=== PATIENT | female | born 1995 ===

== ENCOUNTER 2018-02-05 13:39 | Inpatient (IN) | payer MEDICAID ==
--- NOTE | 2018-02-05 14:21 | ED PDOC ---
HPI:Nausea, Vomiting, Diarrhea Chief Complaint (Provider): N/V, decreased appetite History Per: Patient History/Exam Limitations: no limitations Onset/Duration Of Symptoms: Days (3) Current Symptoms Are (Timing): Still Present Additional Complaint(s): 22 yo LMP 01/14/18 presents with N/V and decreased appetite. Pt denies fever/ chills. PT states she has some intermittent epigastric pain, usually after vomiting. No current pain. Pt did not take anything at home. Pt states she took a test at home that was negative. No vaginal bleeding, no vaginal discharge. No dysuria. Normal BM <Kiersten Lou - Last Filed: 02/05/18 20:04> <Kurt Beaulieu - Last Filed: 02/05/18 20:39> Time Seen by Provider: 02/05/18 13:53 Chief Complaint (Nursing): Abdominal Pain Past Medical History Reviewed: Historical Data, Nursing Documentation, Vital Signs Vital Signs: Last Vital Signs Temp 98.0 F 02/05/18 13:53 Pulse 96 H 02/05/18 13:53 Resp 19 02/05/18 13:53 BP 119/73 02/05/18 13:53 Pulse Ox 100 02/05/18 13:53 - Medical History PMH: No Chronic Diseases - Surgical History Surgical History: No Surg Hx - Family History Family History: States: No Known Family Hx - Living Arrangements Living Arrangements: With Family - Social History Current smoker - smoking cessation education provided: No <Kiersten Lou - Last Filed: 02/05/18 20:04> Vital Signs: Last Vital Signs Temp 98.0 F 02/05/18 13:53 Pulse 96 H 02/05/18 13:53 Resp 19 02/05/18 13:53 BP 119/73 02/05/18 13:53 Pulse Ox 100 02/05/18 20:08 <Kurt Beaulieu - Last Filed: 02/05/18 20:39> - Allergies Allergies/Adverse Reactions: Allergies Allergy/AdvReac Type Severity Reaction Status Date / Time No Known Allergies Allergy Verified 07/27/14 03:09 Review of Systems ROS Statement: Except As Marked, All Systems Reviewed And Found Negative Constitutional: Negative for: Fever Gastrointestinal: Positive for: Abdominal Pain (Mild epigastric ). Negative for : Nausea, Vomiting Genitourinary Female: Negative for: Dysuria, Vaginal Discharge, Vaginal Bleeding , Pelvic Pain <Kiersten Lou - Last Filed: 02/05/18 20:04> Physical Exam - Reviewed Nursing Documentation Reviewed: Yes Vital Signs Reviewed: Yes - Physical Exam Appears: Positive for: Well, Non-toxic, No Acute Distress Head Exam: Positive for: ATRAUMATIC, NORMAL INSPECTION, NORMOCEPHALIC Skin: Positive for: Normal Color, Warm, DRY Eye Exam: Positive for: Normal appearance ENT: Positive for: Normal ENT Inspection Neck: Positive for: Normal, Painless ROM Cardiovascular/Chest: Positive for: Regular Rate, Rhythm Respiratory: Positive for: Normal Breath Sounds. Negative for: Accessory Muscle Use, Respiratory Distress Gastrointestinal/Abdominal: Positive for: Normal Exam, Bowel Sounds, Soft. Negative for: Tenderness Back: Positive for: Normal Inspection Extremity: Positive for: Normal ROM Neurologic/Psych: Positive for: Alert, Oriented <Kiersten Lou - Last Filed: 02/05/18 20:04> - Laboratory Results Result Diagrams: 02/05/18 15:10 02/05/18 15:10 - ECG O2 Sat by Pulse Oximetry: 100 <Kiersten Lou - Last Filed: 02/05/18 20:04> - Laboratory Results Result Diagrams: 02/05/18 15:10 02/05/18 15:10 <Kurt Beaulieu - Last Filed: 02/05/18 20:39> Medical Decision Making Medical Decision Making: Urine (-) Abnormal U.Dip sent to labs for U/S and US of the abdomen ordered. LFT elevated. PT seen and examined by Dr. Cottrell. Pt admits to taking 10-15 tabs of Tylenol 2 days ago (02/03/18) because she was feeling depressed. PT states that she thinks they were regular strength but is not sure. PT reports taking the last tylenol late in the evening of 02/03/18. PT/PTT/INR ordered. Discussed case with Dr. Daniel. Dr. Daniel would like tylenol level and for poison control to be called. DESMOND Sheehan from poison control. 21 hour course of acetylcysteine at hours 1 - 4 - 16 Repeat LFT, PT/PTT/INR when 2 hours are left. She may need a second 16 hour of acetylcysteine. Continue until LFT < 1000. Mikey Criteria - Candidate for liver transplant. Pt does not meet criteria at this time. 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 Discussed with Dr. Daniel recommended of poison Control. Admission discussed with Dr. Mancera. <Kiersten Lou - Last Filed: 02/05/18 20:04> Medical Decision Making: Time: 190 --Patient additionally evaluated by provider and resident. Care taken over from Dr. Cottrell. --Patient had overdosed on Tylenol with elevated ALT/ALS count. --Kiersten SUAZO spoke to Dr. Daniel, GI specialist. Advised patient be admitted to ICU and asked poison control to be called. --Poison control was contacted and recommended NAC. First dose ordered by provider. Notes that there is no need for patient to be transferred to another facility at this time. Scribe Attestation: Documented by Yasmin Kuhn, acting as a scribe for Kurt Beaulieu MD. Provider Scribe Attestation: All medical record entries made by the Scribe were at my direction and personally dictated by me. I have reviewed the chart and agree that the record accurately reflects my personal performance of the history, physical exam, medical decision making, and the department course for this patient. I have also personally directed, reviewed, and agree with the discharge instructions and disposition. <Kurt Beaulieu - Last Filed: 02/05/18 20:39> Disposition - Patient ED Disposition Is Patient to be Admitted: Yes - Disposition Disposition Time: 20:06 - Pt Status Changed To: Hospital Disposition Of: Inpatient - Admit Certification Admit to Inpatient:: After my assessment, the patient will require hospitalization for at least two midnights. This is because of the severity of symptoms shown, intensity of services needed, and/or the medical risk in this patient being treated as an outpatient. - POA Present On Arrival: None <Kiersten Lou J - Last Filed: 02/05/18 20:04> <Kurt Beaulieu - Last Filed: 02/05/18 20:39> - Clinical Impression Clinical Impression: Tylenol toxicity - Disposition Condition: STABLE
[2018-02-05 15:25] LABS: BASO % 0.2 % (0.0-2.0); EOS % 0.2 % (0.0-4.0); HEMOGLOBIN 13.9 g/dL (12.0-16.0); MEAN CELL VOLUME 88.2 fl (81.0-99.0); MEAN CORPUSCULAR HEMOGLOBIN 29.8 pg (27.0-31.0); MEAN CORPUSCULAR HGB CONC 33.8 g/dL (33.0-37.0); MEAN PLATELET VOLUME 8.6 fl (7.2-11.7); MONO # 0.9 K/uL (0.0-0.8); MONO % 7.8 % (0.0-10.0); NEUT # 10.1 K/uL (1.8-7.0); NEUT % 83.8 % (50.0-75.0); PLATELET COUNT 287 K/uL (130-400); RBC 4.66 Mil/uL (3.80-5.20); RED CELL DISTRIBUTION WIDTH 12.8 % (11.5-14.5)
[2018-02-05] MEDS ORDERED: Sodium Chloride 0.9% 1,000 ML IV STA (15:33)
[2018-02-05 15:46] LABS: ALB/GLOB RATIO 1.2 (1.0-2.1); ALBUMIN 4.3 g/dL (3.5-5.0); BLOOD UREA NITROGEN 10 mg/dl (7-17); CALCIUM 8.7 mg/dL (8.4-10.2); GFR AFRICAN-AMERICAN > 60; GFR NON-AFRICAN AMERICAN > 60; LIPASE 99 U/L (23-300)
[2018-02-05 16:31] LABS: AST/SGOT 4129 U/L (14-36)
[2018-02-05 16:39] LABS: SQUAMOUS EPITHIAL 3 /hpf (0-5); URINE BACTERIA MANY (<OCC); URINE BILIRUBIN NEGATIVE (NEGATIVE); URINE BLOOD SMALL (NEGATIVE); URINE CLARITY TURBID (Clear); URINE COLOR AMBER (YELLOW); URINE GLUCOSE (UA) NEG (Normal); URINE LEUKOCYTE ESTERASE NEG Leu/uL (Negative); URINE PROTEIN >=500 mg/dL (NEGATIVE)
[2018-02-05 16:43] LABS: ALT/SGPT 3033 U/L (9-52)
[2018-02-05 16:50] LABS: GRANULAR CAST 0-2 /lpf (0-1); URINE HYALINE CAST 0-2 /hpf (0-2)
--- NOTE | 2018-02-05 17:43 | US ---
HISTORY: vomiting - Please evaluate kidneys COMPARISON: None. TECHNIQUE: Grayscale imaging was performed. FINDINGS: LIVER: Measures 11.8 cm. Normal echogenicity of the liver parenchyma. No mass. No intrahepatic bile duct dilatation. GALLBLADDER: There are no gallstones, wall thickening or pericholecystic fluid. There is gallbladder sludge. The sonographic Swanson's sign is negative. COMMON BILE DUCT: Measures 2.0 mm. No stones. No dilatation. PANCREAS: Unremarkable as visualized. No mass. No ductal dilatation. RIGHT KIDNEY: Measures 9.4cm. Normal echogenicity. No calculus, mass, or hydronephrosis. LEFT KIDNEY: Measures 10.2cm. Normal echogenicity. No calculus, mass, or hydronephrosis. SPLEEN: Normal in size and contour. No mass. AORTA: No aneurysmal dilatation. IVC: Unremarkable. OTHER FINDINGS: None. IMPRESSION: No nephrolithiasis or hydronephrosis. Gallbladder sludge. No cholelithiasis.
[2018-02-05 17:46] LABS: LYMPHOCYTE 9 % (20-50); MONOCYTE 7 % (0-10); NEUTROPHIL 84 % (42-75); PLATELET ESTIMATE NORMAL (NORMAL); TOTAL CELLS COUNTED 100
[2018-02-05 19:30] LABS: INR 1.6 (0.9-1.2); PARTIAL THROMBOPLASTIN TIME 34.4 Seconds (25.6-37.1); PROTHROMBIN TIME 18.2 Seconds (9.8-13.1)
[2018-02-05] MEDS ORDERED: ACETYLCYSTEINE IVPB STA (20:03)
[2018-02-05] MEDS ORDERED: WATER IVPB STA (20:03)
[2018-02-05] MEDS ORDERED: DEXTROSE 5% IVPB STA (20:03)
--- NOTE | 2018-02-05 20:23 | CP.PCM.HP ---
History of Present Illness - History of Present Illness History of Present Illness: PMD: William Valentino MD Chief Complaint: Vomiting/Abdominal pain/Tylenol Overdose The patient was seen and examined in the Ed with Sister present HPI: 22 years old female with no significant past medical hx comes referring that 3 days ago she ingested a handful of tylenol , about 10tablets concentration unknown. She had some family dispute and wanted to commit suicide. She refers three days of nausea, vomits associated with intermittent periumbilical abdominal pain which was sharp, non radiating. She is having difficulty to sleep, cannot eat because or the vomiting and mild headaches and dizziness. PMH: No Chronic Diseases PSH; Cesarian Section SH: Light smoker; occasional Alcohol; No illegal drug use; Live with family; At Home Mum FH: Mother and Sister with Asthma Allergies: NKDA Medication: Denies - Present on Admission - Present on Admission Any Indicators Present on Admission: No History of DVT/PE: No History of Uncontrolled Diabetes: No Urinary Catheter: No Decubitus Ulcer Present: No Review of Systems - Constitutional Constitutional: Fatigue, Headache. absent: Chills, Fever, Malaise - EENT Eyes: Requires Corrective Lenses. absent: Diplopia, Floaters, Sees Flashes Ears: absent: Decreased Hearing, Ear Discharge, Ear Pain, Tinnitus Nose/Mouth/Throat: absent: Epistaxis, Nasal Congestion, Nasal Discharge, Sinus Pain, Sinus Pressure - Cardiovascular Cardiovascular: absent: Chest Pain, Dyspnea, Edema - Respiratory Respiratory: absent: Cough, Dyspnea, Wheezing, Stridor - Gastrointestinal Gastrointestinal: Abdominal Pain, Nausea, Vomiting. absent: Constipation, Diarrhea - Genitourinary Genitourinary: absent: Dysuria, Flank Pain, Urinary Frequency - Musculoskeletal Musculoskeletal: absent: Abnormal Gait, Back Pain, Muscle Cramps, Myalgias - Integumentary Integumentary: absent: Pruritus, Rash, Skin Ulcer, Sores, Striae, Swelling - Neurological Neurological: Dizziness, Headaches. absent: Confusion, Numbness, Focal Weakness , Weakness - Psychiatric Psychiatric: Suicidal Ideation. absent: Anxiety, Depression, Panic Attacks - Endocrine Endocrine: absent: Palpitations, Polydipsia, Polyphagia, Polyuria - Hematologic/Lymphatic Hematologic: absent: Easy Bleeding, Easy Bruising Past Patient History - Infectious Disease Hx of Infectious Diseases: None - Past Medical History & Family History Past Medical History?: No - Past Social History Smoking Status: Former Smoker Chewing Tobacco Use: No Cigar Use: No Alcohol: Occasional Drugs: Denies Home Situation {Lives}: With Family - CARDIAC Hx Cardiac Disorders: No - PULMONARY Hx Respiratory Disorders: No - NEUROLOGICAL Hx Neurological Disorder: No - HEENT Hx HEENT Problems: No - RENAL Hx Chronic Kidney Disease: No - ENDOCRINE/METABOLIC Hx Endocrine Disorders: No - HEMATOLOGICAL/ONCOLOGICAL Hx Blood Disorders: No - INTEGUMENTARY Hx Dermatological Problems: No - MUSCULOSKELETAL/RHEUMATOLOGICAL Hx Musculoskeletal Disorders: No - GASTROINTESTINAL Hx Gastrointestinal Disorders: No - GENITOURINARY/GYNECOLOGICAL Hx Genitourinary Disorders: No - PSYCHIATRIC Hx Psychophysiologic Disorder: No Hx Substance Use: No - SURGICAL HISTORY Hx Section: Yes - ANESTHESIA Hx Anesthesia: Yes Hx Anesthesia Reactions: No Meds Allergies/Adverse Reactions: Allergies Allergy/AdvReac Type Severity Reaction Status Date / Time No Known Allergies Allergy Verified 07/27/14 03:09 Physical Exam - Constitutional Appears: No Acute Distress - Head Exam Head Exam: ATRAUMATIC, NORMAL INSPECTION, NORMOCEPHALIC - Eye Exam Eye Exam: EOMI, Normal appearance Pupil Exam: NORMAL ACCOMODATION, PERRL - ENT Exam ENT Exam: Mucous Membranes Moist, Normal Exam, Normal External Ear Exam, Normal Oropharynx - Neck Exam Neck exam: Positive for: Full Rom, Normal Inspection. Negative for: Lymphadenopathy, Tenderness - Respiratory Exam Respiratory Exam: Clear to Auscultation Bilateral. absent: Rales, Rhonchi, Wheezes - Cardiovascular Exam Cardiovascular Exam: REGULAR RHYTHM, RRR, +S1, +S2. absent: Gallop, JVD - GI/Abdominal Exam GI & Abdominal Exam: Normal Bowel Sounds, Soft. absent: Mass, Organomegaly, Tenderness - Rectal Exam Rectal Exam: Deferred - Extremities Exam Extremities exam: Positive for: full ROM, normal inspection. Negative for: calf tenderness, pedal edema - Back Exam Back exam: NORMAL INSPECTION. absent: CVA tenderness (L), CVA tenderness (R) - Neurological Exam Neurological exam: Alert, CN II-XII Intact, Oriented x3, Reflexes Normal - Psychiatric Exam Psychiatric exam: Normal Affect, Normal Mood - Skin Skin Exam: Dry, Intact, Normal Color, Warm Results - Vital Signs Recent Vital Signs: Last Vital Signs Temp 98.0 F 02/05/18 13:53 Pulse 96 H 04/30/18 13:53 Resp 19 02/05/18 13:53 BP 119/73 02/05/18 13:53 Pulse Ox 100 02/05/18 20:08 - Labs Result Diagrams: 02/05/18 15:10 02/05/18 15:10 Labs: Laboratory Results - last 24 hr 02/05/18 02/05/18 02/05/18 15:10 15:10 15:33 WBC 12.0 H RBC 4.66 Hgb 13.9 Hct 41.1 MCV 88.2 D MCH 29.8 MCHC 33.8 RDW 12.8 Plt Count 287 D MPV 8.6 Neut % (Auto) 83.8 H Lymph % (Auto) 8.0 L [place] % (Auto) 7.8 Eos % (Auto) 0.2 Baso % (Auto) 0.2 Neut # (Auto) 10.1 H Lymph # (Auto) 1.0 [place] # (Auto) 0.9 H Eos # (Auto) 0.0 Baso # (Auto) 0.0 Neutrophils % (Manual) 84 H Lymphocytes % (Manual) 9 L Monocytes % (Manual) 7 Platelet Estimate Normal RBC Morphology Normal PT INR APTT Sodium 138 Potassium 3.7 Chloride 101 Carbon Dioxide 19 L Anion Gap 22 H BUN 10 Creatinine 0.7 Est GFR ( Amer) > 60 Est GFR (Non-Af Amer) > 60 POC Glucose (mg/dL) 68 Random Glucose 79 Calcium 8.7 Total Bilirubin 0.9 AST 4129 H ALT 3033 H Alkaline Phosphatase 89 Total Protein 7.8 Albumin 4.3 Globulin 3.5 Albumin/Globulin Ratio 1.2 Lipase 99 Urine Color Urine Clarity Urine pH Ur Specific [place] Urine Protein Urine Glucose (UA) Urine Ketones Urine Blood Urine Nitrate Urine Bilirubin Urine Urobilinogen Ur Leukocyte Esterase Urine RBC (Auto) Urine Microscopic WBC Ur Squamous Epith Cells Urine Bacteria Hyaline Casts Granular Casts (Auto) Acetaminophen 02/05/18 02/05/18 02/05/18 16:03 18:40 18:40 WBC RBC Hgb Hct MCV MCH MCHC RDW Plt Count MPV Neut % (Auto) Lymph % (Auto) [place] % (Auto) Eos % (Auto) Baso % (Auto) Neut # (Auto) Lymph # (Auto) [place] # (Auto) Eos # (Auto) Baso # (Auto) Neutrophils % (Manual) Lymphocytes % (Manual) Monocytes % (Manual) Platelet Estimate RBC Morphology PT 18.2 H INR 1.6 H APTT 34.4 Sodium Potassium Chloride Carbon Dioxide Anion Gap BUN Creatinine Est GFR ( Amer) Est GFR (Non-Af Amer) POC Glucose (mg/dL) Random Glucose Calcium Total Bilirubin AST ALT Alkaline Phosphatase Total Protein Albumin Globulin Albumin/Globulin Ratio Lipase Urine Color Jeanne Urine Clarity Turbid Urine pH 5.[address] [place] 1.029 Urine Protein >=500 Urine Glucose (UA) Neg Urine Ketones 80 Urine Blood Small Urine Nitrate Negative Urine Bilirubin Negative Urine Urobilinogen 4.0 H Ur Leukocyte Esterase Neg Urine RBC (Auto) 5 H Urine Microscopic WBC 18 H Ur Squamous Epith Cells 3 Urine Bacteria Many H Hyaline Casts 0-2 Granular Casts (Auto) 0-2 Acetaminophen < 10.0 L - Imaging and Cardiology US - abdomen Status: Report reviewed by me Additional comment: IMPRESSION: No nephrolithisis nor Hydronephrosis Gallbladder sludge present with no Cholelithiasis Assessment & Plan - Assessment and Plan (Free Text) Assessment: #. Acetaminophen Overdose #. Acute Liver failure #. Starvation Ketosis #. leukocytosis Plan: 22 years old female with no significant past medical hx comes 3 days after ingesting a handful of Tylenol. She had some family dispute and wanted to commit suicide. She refers three days of nausea, vomits associated with intermittent periumbilical abdominal pain. #. Acetaminophen Overdose in a Suicide attempt - Consult Psychiatry Dr Nunez - 1:1 Suicide Observation #. Acute Liver failure with Elevated Liver enzymes secondary to Acetaminophen overdose - Consult Dr Daniel GI - Acetylcysteine antidote dose started - Follow LFT /INR/PTT #. Starvation Ketosis with elevated Ketones in urine - IV fluid with D5/NS and maintenance KCL - Follow Ketones #. Reactive Neutrophylic leukocytosis - Follow CBC #. DVT Prophylaxis with SCD. No Anticoagulant as INR is already elevated #. Code Status: Full - Date & Time Date: 02/05/18 Time: 20:23
[2018-02-05 20:54] LABS: BARBITURATES, UR NEGATIVE (NEGATIVE); BENZODIAZEPINES, UR NEGATIVE (NEGATIVE); OPIATES, UR NEGATIVE (NEGATIVE); PHENCYCLIDINE, UR NEGATIVE (NEGATIVE)
[2018-02-05 21:46] LABS: HEPATITIS B SURFACE AG Negative (NEGATIVE)
[2018-02-05 21:52] LABS: HEPATITIS A IGM NEGATIVE (NEGATIVE); HEPATITIS B CORE AB NEGATIVE (NEGATIVE)
[2018-02-05 22:04] LABS: HEPATITIS C ANTIBODY NEGATIVE (NEGATIVE)
[2018-02-05] MEDS ORDERED: DEXTROSE 5% IVPB ONE (22:09)
[2018-02-05] MEDS ORDERED: ACETYLCYSTEINE IVPB ONE (22:09)
[2018-02-05] MEDS ORDERED: WATER IVPB ONE (22:09)
[2018-02-05] MEDS ORDERED: Potassium Chl 20 mEq in D5-NS 1,000 ML IV SCH (22:30)
[2018-02-05 23:24] LABS: ABG ALLEN TEST YES; ARTERIAL BLOOD GAS HCO3 25.2 mmol/L (21-28); ARTERIAL BLOOD GAS HEMOGLOBIN 12.8 g/dL (11.7-17.4); ARTERIAL BLOOD GAS O2 CAPACITY 17.7 mL/dL (16-24); ARTERIAL BLOOD GAS O2 CONTENT 17.8 ML/dL (15-23); ARTERIAL BLOOD GAS O2 SAT 100.3 % (95-98); ARTERIAL BLOOD GAS PCO2 38 mm/Hg (35-45); ARTERIAL BLOOD GAS PH 7.42 (7.35-7.45); ARTERIAL BLOOD GAS PO2 155 mm/Hg (80-100); ARTERIAL BLOOD GAS TCO2 25.8 mmol/L (22-28)
[2018-02-06] MEDS ORDERED: ACETYLCYSTEINE IVPB ONE (02:27)
[2018-02-06] MEDS ORDERED: DEXTROSE 5% IVPB ONE (02:27)
[2018-02-06] MEDS ORDERED: WATER IVPB ONE (02:27)
[2018-02-06 05:05] VITALS: BMI 39.8
[2018-02-06 05:37] LABS: BASO % 0.2 % (0.0-2.0); EOS # 0.1 K/uL (0.0-0.7); EOS % 0.6 % (0.0-4.0); HEMOGLOBIN 12.7 g/dL (12.0-16.0); LYMPH # 2.1 K/uL (1.0-4.3); LYMPH % 25.8 % (20.0-40.0); MEAN CELL VOLUME 88.4 fl (81.0-99.0); MEAN CORPUSCULAR HEMOGLOBIN 30.3 pg (27.0-31.0); MEAN CORPUSCULAR HGB CONC 34.3 g/dL (33.0-37.0); MEAN PLATELET VOLUME 8.7 fl (7.2-11.7); MONO # 0.7 K/uL (0.0-0.8); MONO % 8.7 % (0.0-10.0); NEUT # 5.4 K/uL (1.8-7.0); NEUT % 64.7 % (50.0-75.0); NRBC % 0.1 % (0.0-0.0); RBC 4.19 Mil/uL (3.80-5.20); RED CELL DISTRIBUTION WIDTH 12.5 % (11.5-14.5); WHITE BLOOD COUNT 8.3 K/uL (4.8-10.8)
[2018-02-06 05:44] LABS: ALB/GLOB RATIO 1.2 (1.0-2.1); ALBUMIN 3.5 g/dL (3.5-5.0); BLOOD UREA NITROGEN 6 mg/dl (7-17); CALCIUM 7.9 mg/dL (8.4-10.2); GFR AFRICAN-AMERICAN > 60; GFR NON-AFRICAN AMERICAN > 60
[2018-02-06 06:02] LABS: INR 1.5 (0.9-1.2); PARTIAL THROMBOPLASTIN TIME 33.8 Seconds (25.6-37.1)
[2018-02-06 07:34] LABS: ALT/SGPT 2528 U/L (9-52); AST/SGOT 2375 U/L (14-36)
--- NOTE | 2018-02-06 07:48 | CP.PCM.CON ---
<Az Saunders - Last Filed: 02/06/18 09:28> History of Present Illness - History of Present Illness History of Present Illness: PGY5 GI Fellow Consult Note Patient is a 22yo female with PMHx significant for obesity who presented to the ED with nausea, vomiting and decreased appetite. Patient is not very forthcoming with precipitating events but admits that she wanted to harm herself and took a "handful" (at least 10) Tylenol on Monday evening. She admits that within an hour she developed nausea, vomiting and cramping abdominal pain. She developed lack of appetite, headaches, dizziness and could not tolerate any PO intake. She has since been open with her family about what occurred and has come to the hospital for evaluation and treatment. Presently, she denies any desire to harm herself or others. She no longer has abdominal pain and admits to feeling hungry. Her initial blood work revealed significant elevation in transaminases (AST/ALT 4129/3033) along with coagulopathy with INR 1.6. She denies any overt bleeding, confusion and is currently oriented to her surroundings. Poison control was contacted and patient was started on NAC therapy. 12 system ROS performed and negative except where stated PMHx: Obesity PSHx: FHx: Mother - asthma Social: Rare tobacco, EtOH use; denies illicit drug use Endo: No prior endoscopic evaluations Past Patient History - Infectious Disease Hx of Infectious Diseases: None - Past Medical History & Family History Past Medical History?: No - Past Social History Smoking Status: Former Smoker Chewing Tobacco Use: No Cigar Use: No Alcohol: Occasional Drugs: Denies Home Situation {Lives}: With Family - CARDIAC Hx Cardiac Disorders: No - PULMONARY Hx Respiratory Disorders: No - NEUROLOGICAL Hx Neurological Disorder: No - HEENT Hx HEENT Problems: No - RENAL Hx Chronic Kidney Disease: No - ENDOCRINE/METABOLIC Hx Endocrine Disorders: No - HEMATOLOGICAL/ONCOLOGICAL Hx Blood Disorders: No - INTEGUMENTARY Hx Dermatological Problems: No - MUSCULOSKELETAL/RHEUMATOLOGICAL Hx Musculoskeletal Disorders: No - GASTROINTESTINAL Hx Gastrointestinal Disorders: No - GENITOURINARY/GYNECOLOGICAL Hx Genitourinary Disorders: No - PSYCHIATRIC Hx Psychophysiologic Disorder: No Hx Substance Use: No - SURGICAL HISTORY Hx Section: Yes - ANESTHESIA Hx Anesthesia: Yes Hx Anesthesia Reactions: No Meds Allergies/Adverse Reactions: Allergies Allergy/AdvReac Type Severity Reaction Status Date / Time No Known Allergies Allergy Verified 07/27/14 03:09 - Medications Medications: Current Medications Potassium Chloride/Dextrose/Sod Cl (Potassium Chl 20 Meq In D5-Ns) 1,000 mls @ 100 mls/hr IV .Q10H BHARGAV Stop: 02/06/18 22:19 Last Admin: 02/05/18 23:55 Dose: 100 mls/hr Acetylcysteine 8,350 mg/ (Dextrose) 1,041.75 mls @ 62.5 mls/hr IVPB ONCE ONE Stop: 02/06/18 19:07 Last Admin: 02/06/18 03:50 Dose: 62.5 mls/hr Ondansetron HCl (Zofran Odt) 4 mg PO Q8H PRN PRN Reason: Nausea/Vomiting Last Admin: 02/05/18 22:02 Dose: 4 mg Physical Exam - Constitutional Appears: Well, Non-toxic, No Acute Distress - Eye Exam Eye Exam: EOMI, PERRL - ENT Exam ENT Exam: Mucous Membranes Moist - Respiratory Exam Respiratory Exam: Clear to Auscultation Bilateral. absent: Rales, Rhonchi, Wheezes - Cardiovascular Exam Cardiovascular Exam: RRR, +S1, +S2 - GI/Abdominal Exam GI & Abdominal Exam: Normal Bowel Sounds, Soft. absent: Distended, Firm, Guarding, Organomegaly, Rigid, Tenderness - Extremities Exam Extremities exam: Positive for: normal inspection. Negative for: pedal edema - Neurological Exam Neurological exam: Alert, Oriented x3 - Psychiatric Exam Psychiatric exam: Normal Affect, Normal Mood Additional comments: No SI/HI - Skin Skin Exam: Dry, Warm Results - Vital Signs Recent Vital Signs: Last Vital Signs Temp 98.1 F 02/06/18 04:00 Pulse 60 02/06/18 06:38 Resp 17 02/06/18 06:38 BP 93/58 L 02/06/18 06:38 Pulse Ox 100 02/06/18 06:38 - Labs Result Diagrams: 02/06/18 04:20 02/06/18 04:20 Labs: Laboratory Results - last 24 hr 02/05/18 02/05/18 02/05/18 15:10 15:10 15:33 WBC 12.0 H RBC 4.66 Hgb 13.9 Hct 41.1 MCV 88.2 D MCH 29.8 MCHC 33.8 RDW 12.8 Plt Count 287 D MPV 8.6 Neut % (Auto) 83.8 H Lymph % (Auto) 8.0 L [place] % (Auto) 7.8 Eos % (Auto) 0.2 Baso % (Auto) 0.2 Neut # (Auto) 10.1 H Lymph # (Auto) 1.0 [place] # (Auto) 0.9 H Eos # (Auto) 0.0 Baso # (Auto) 0.0 Neutrophils % (Manual) 84 H Lymphocytes % (Manual) 9 L Monocytes % (Manual) 7 Platelet Estimate Normal RBC Morphology Normal PT INR APTT pCO2 pO2 HCO3 ABG pH ABG Total CO2 ABG O2 Saturation ABG O2 Content ABG Base Excess ABG Hemoglobin ABG Carboxyhemoglobin POC ABG HHb (Measured) ABG Methemoglobin ABG O2 Capacity Jarred Test A-a O2 Difference Hgb O2 Saturation Vent Mode FiO2 Sodium 138 Potassium 3.7 Chloride 101 Carbon Dioxide 19 L Anion Gap 22 H BUN 10 Creatinine 0.7 Est GFR ( Amer) > 60 Est GFR (Non-Af Amer) > 60 POC Glucose (mg/dL) 68 Random Glucose 79 Lactic Acid Calcium 8.7 Total Bilirubin 0.9 AST 4129 H ALT 3033 H Alkaline Phosphatase 89 Total Protein 7.8 Albumin 4.3 Globulin 3.5 Albumin/Globulin Ratio 1.2 Lipase 99 Urine Color Urine Clarity Urine pH Ur Specific [place] Urine Protein Urine Glucose (UA) Urine Ketones Urine Blood Urine Nitrate Urine Bilirubin Urine Urobilinogen Ur Leukocyte Esterase Urine RBC (Auto) Urine Microscopic WBC Ur Squamous Epith Cells Urine Bacteria Hyaline Casts Granular Casts (Auto) Salicylates Urine Opiates Screen Urine Methadone Screen Acetaminophen Ur Barbiturates Screen Ur Phencyclidine Scrn Ur Amphetamines Screen U Benzodiazepines Scrn U Oth Cocaine Metabols U Cannabinoids Screen Hepatitis A IgM Ab Hep Bs Antigen Hep B Core IgM Ab Hepatitis C Antibody 02/05/18 02/05/18 02/05/18 16:03 18:40 18:40 WBC RBC Hgb Hct MCV MCH MCHC RDW Plt Count MPV Neut % (Auto) Lymph % (Auto) [place] % (Auto) Eos % (Auto) Baso % (Auto) Neut # (Auto) Lymph # (Auto) [place] # (Auto) Eos # (Auto) Baso # (Auto) Neutrophils % (Manual) Lymphocytes % (Manual) Monocytes % (Manual) Platelet Estimate RBC Morphology PT 18.2 H INR 1.6 H APTT 34.4 pCO2 pO2 HCO3 ABG pH ABG Total CO2 ABG O2 Saturation ABG O2 Content ABG Base Excess ABG Hemoglobin ABG Carboxyhemoglobin POC ABG HHb (Measured) ABG Methemoglobin ABG O2 Capacity Jarred Test A-a O2 Difference Hgb O2 Saturation Vent Mode FiO2 Sodium Potassium Chloride Carbon Dioxide Anion Gap BUN Creatinine Est GFR ( Amer) Est GFR (Non-Af Amer) POC Glucose (mg/dL) Random Glucose Lactic Acid Calcium Total Bilirubin AST ALT Alkaline Phosphatase Total Protein Albumin Globulin Albumin/Globulin Ratio Lipase Urine Color Jeanne Urine Clarity Turbid Urine pH 5.0 Ur Specific [place] 1.029 Urine Protein >=500 Urine Glucose (UA) Neg Urine Ketones 80 Urine Blood Small Urine Nitrate Negative Urine Bilirubin Negative Urine Urobilinogen 4.0 H Ur Leukocyte Esterase Neg Urine RBC (Auto) 5 H Urine Microscopic WBC 18 H Ur Squamous Epith Cells 3 Urine Bacteria Many H Hyaline Casts 0-2 Granular Casts (Auto) 0-2 Salicylates Urine Opiates Screen Urine Methadone Screen Acetaminophen Ur Barbiturates Screen Ur Phencyclidine Scrn Ur Amphetamines Screen U Benzodiazepines Scrn U Oth Cocaine Metabols U Cannabinoids Screen Hepatitis A IgM Ab Negative Hep Bs Antigen Negative Hep B Core IgM Ab Negative Hepatitis C Antibody Negative 02/05/18 02/05/18 02/05/18 18:40 20:06 20:20 WBC RBC Hgb Hct MCV MCH MCHC RDW Plt Count MPV Neut % (Auto) Lymph % (Auto) [place] % (Auto) Eos % (Auto) Baso % (Auto) Neut # (Auto) Lymph # (Auto) [place] # (Auto) Eos # (Auto) Baso # (Auto) Neutrophils % (Manual) Lymphocytes % (Manual) Monocytes % (Manual) Platelet Estimate RBC Morphology PT INR APTT pCO2 pO2 HCO3 ABG pH ABG Total CO2 ABG O2 Saturation ABG O2 Content ABG Base Excess ABG Hemoglobin ABG Carboxyhemoglobin POC ABG HHb (Measured) ABG Methemoglobin ABG O2 Capacity Jarred Test A-a O2 Difference Hgb O2 Saturation Vent Mode FiO2 Sodium Potassium Chloride Carbon Dioxide Anion Gap BUN Creatinine Est GFR ( Amer) Est GFR (Non-Af Amer) POC Glucose (mg/dL) Random Glucose Lactic Acid 1.0 Calcium Total Bilirubin AST ALT Alkaline Phosphatase Total Protein Albumin Globulin Albumin/Globulin Ratio Lipase Urine Color Urine Clarity Urine pH Ur Specific [place] Urine Protein Urine Glucose (UA) Urine Ketones Urine Blood Urine Nitrate Urine Bilirubin Urine Urobilinogen Ur Leukocyte Esterase Urine RBC (Auto) Urine Microscopic WBC Ur Squamous Epith Cells Urine Bacteria Hyaline Casts Granular Casts (Auto) Salicylates Urine Opiates Screen Negative Urine Methadone Screen Negative Acetaminophen < 10.0 L Ur Barbiturates Screen Negative Ur Phencyclidine Scrn Negative Ur Amphetamines Screen Negative U Benzodiazepines Scrn Negative U Oth Cocaine Metabols Negative U Cannabinoids Screen Negative Hepatitis A IgM Ab Hep Bs Antigen Hep B Core IgM Ab Hepatitis C Antibody 02/05/18 02/05/18 02/05/18 20:25 23:09 23:35 WBC RBC Hgb Hct MCV MCH MCHC RDW Plt Count MPV Neut % (Auto) Lymph % (Auto) [place] % (Auto) Eos % (Auto) Baso % (Auto) Neut # (Auto) Lymph # (Auto) [place] # (Auto) Eos # (Auto) Baso # (Auto) Neutrophils % (Manual) Lymphocytes % (Manual) Monocytes % (Manual) Platelet Estimate RBC Morphology PT INR APTT pCO2 38 pO2 155 H HCO3 25.2 ABG pH 7.42 ABG Total CO2 25.8 ABG O2 Saturation 100.3 H ABG O2 Content 17.8 ABG Base Excess 0.3 ABG Hemoglobin 12.8 ABG Carboxyhemoglobin 2.1 H POC ABG HHb (Measured) -0.3 L ABG Methemoglobin 1.0 ABG O2 Capacity 17.7 Jarred Test Yes A-a O2 Difference 26.0 Hgb O2 Saturation 97.2 Vent Mode 3l nc FiO2 32.0 Sodium Potassium Chloride Carbon Dioxide Anion Gap BUN Creatinine Est GFR ( Amer) Est GFR (Non-Af Amer) POC Glucose (mg/dL) 92 Random Glucose Lactic Acid Calcium Total Bilirubin AST ALT Alkaline Phosphatase Total Protein Albumin Globulin Albumin/Globulin Ratio Lipase Urine Color Urine Clarity Urine pH Ur Specific [place] Urine Protein Urine Glucose (UA) Urine Ketones Urine Blood Urine Nitrate Urine Bilirubin Urine Urobilinogen Ur Leukocyte Esterase Urine RBC (Auto) Urine Microscopic WBC Ur Squamous Epith Cells Urine Bacteria Hyaline Casts Granular Casts (Auto) Salicylates 10.4 Urine Opiates Screen Urine Methadone Screen Acetaminophen Ur Barbiturates Screen Ur Phencyclidine Scrn Ur Amphetamines Screen U Benzodiazepines Scrn U Oth Cocaine Metabols U Cannabinoids Screen Hepatitis A IgM Ab Hep Bs Antigen Hep B Core IgM Ab Hepatitis C Antibody 02/06/18 02/06/18 02/06/18 04:20 04:20 04:20 WBC 8.3 RBC 4.19 Hgb 12.7 Hct 37.0 MCV 88.4 MCH 30.3 MCHC 34.3 RDW 12.5 Plt Count 239 MPV 8.7 Neut % (Auto) 64.7 Lymph % (Auto) 25.8 [place] % (Auto) 8.7 Eos % (Auto) 0.6 Baso % (Auto) 0.2 Neut # (Auto) 5.4 Lymph # (Auto) 2.1 [place] # (Auto) 0.7 Eos # (Auto) 0.1 Baso # (Auto) 0.0 Neutrophils % (Manual) Lymphocytes % (Manual) Monocytes % (Manual) Platelet Estimate RBC Morphology PT 17.0 H INR 1.5 H APTT 33.8 pCO2 pO2 HCO3 ABG pH ABG Total CO2 ABG O2 Saturation ABG O2 Content ABG Base Excess ABG Hemoglobin ABG Carboxyhemoglobin POC ABG HHb (Measured) ABG Methemoglobin ABG O2 Capacity Jarred Test A-a O2 Difference Hgb O2 Saturation Vent Mode FiO2 Sodium 136 Potassium 3.8 Chloride 103 Carbon Dioxide 25 Anion Gap 12 BUN 6 L Creatinine 0.5 L Est GFR ( Amer) > 60 Est GFR (Non-Af Amer) > 60 POC Glucose (mg/dL) Random Glucose 125 H Lactic Acid Calcium 7.9 L Total Bilirubin 0.5 AST 2375 H ALT 2528 H Alkaline Phosphatase 44 Total Protein 6.3 Albumin 3.5 Globulin 2.8 Albumin/Globulin Ratio 1.2 Lipase Urine Color Urine Clarity Urine pH Ur Specific [place] Urine Protein Urine Glucose (UA) Urine Ketones Urine Blood Urine Nitrate Urine Bilirubin Urine Urobilinogen Ur Leukocyte Esterase Urine RBC (Auto) Urine Microscopic WBC Ur Squamous Epith Cells Urine Bacteria Hyaline Casts Granular Casts (Auto) Salicylates Urine Opiates Screen Urine Methadone Screen Acetaminophen Ur Barbiturates Screen Ur Phencyclidine Scrn Ur Amphetamines Screen U Benzodiazepines Scrn U Oth Cocaine Metabols U Cannabinoids Screen Hepatitis A IgM Ab Hep Bs Antigen Hep B Core IgM Ab Hepatitis C Antibody Assessment & Plan - Assessment and Plan (Free Text) Assessment: Patient is a 22yo female with PMHx significant for obesity who presented to the ED with nausea, vomiting and decreased appetite -Intentional acetaminophen overdose -Suicide attempt with acetaminophen overdose -Nausea, vomiting, abdominal pain 2/2 above -Depression -Obesity Plan: -LFTs all downtrending -No evidence for acute liver failure -Trend LFTs, INR -NAC protocol as ordered and recommended by poison control -Hepatitis serologies unremarkable -U/S reviewed and unremarkable -Supportive care -Diet as tolerated -Psychiatric evaluation recommended Discussed with Dr Daniel - Date & Time Date: 02/06/18 Time: 06:45 <Marcial Daniel - Last Filed: 02/06/18 20:09> Meds - Medications Medications: Current Medications Ondansetron HCl (Zofran Odt) 4 mg PO Q8H PRN PRN Reason: Nausea/Vomiting Last Admin: 02/05/18 22:02 Dose: 4 mg Results - Vital Signs Recent Vital Signs: Last Vital Signs Temp 99.2 F 02/06/18 16:00 Pulse 83 02/06/18 18:00 Resp 23 02/06/18 18:00 BP 93/42 L 02/06/18 18:00 Pulse Ox 100 02/06/18 18:00 - Labs Result Diagrams: 02/06/18 04:20 02/06/18 04:20 Labs: Laboratory Results - last 24 hr 02/05/18 02/05/18 02/05/18 18:40 20:06 20:20 WBC RBC Hgb Hct MCV MCH MCHC RDW Plt Count MPV Neut % (Auto) Lymph % (Auto) [place] % (Auto) Eos % (Auto) Baso % (Auto) Neut # (Auto) Lymph # (Auto) [place] # (Auto) Eos # (Auto) Baso # (Auto) PT INR APTT pCO2 pO2 HCO3 ABG pH ABG Total CO2 ABG O2 Saturation ABG O2 Content ABG Base Excess ABG Hemoglobin ABG Carboxyhemoglobin POC ABG HHb (Measured) ABG Methemoglobin ABG O2 Capacity Jarred Test A-a O2 Difference Hgb O2 Saturation Vent Mode FiO2 Sodium Potassium Chloride Carbon Dioxide Anion Gap BUN Creatinine Est GFR ( Amer) Est GFR (Non-Af Amer) POC Glucose (mg/dL) Random Glucose Lactic Acid 1.0 Calcium Total Bilirubin Direct Bilirubin AST ALT Alkaline Phosphatase Total Protein Albumin Globulin Albumin/Globulin Ratio Salicylates Urine Opiates Screen Negative Urine Methadone Screen Negative Ur Barbiturates Screen Negative Ur Phencyclidine Scrn Negative Ur Amphetamines Screen Negative U Benzodiazepines Scrn Negative U Oth Cocaine Metabols Negative U Cannabinoids Screen Negative Serum Ketones Hepatitis A IgM Ab Negative Hep Bs Antigen Negative Hep B Core IgM Ab Negative Hepatitis C Antibody Negative 02/05/18 02/05/18 02/05/18 20:25 23:09 23:35 WBC RBC Hgb Hct MCV MCH MCHC RDW Plt Count MPV Neut % (Auto) Lymph % (Auto) [place] % (Auto) Eos % (Auto) Baso % (Auto) Neut # (Auto) Lymph # (Auto) [place] # (Auto) Eos # (Auto) Baso # (Auto) PT INR APTT pCO2 38 pO2 155 H HCO3 25.2 ABG pH 7.42 ABG Total CO2 25.8 ABG O2 Saturation 100.3 H ABG O2 Content 17.8 ABG Base Excess 0.3 ABG Hemoglobin 12.8 ABG Carboxyhemoglobin 2.1 H POC ABG HHb (Measured) -0.3 L ABG Methemoglobin 1.0 ABG O2 Capacity 17.7 Jarred Test Yes A-a O2 Difference 26.0 Hgb O2 Saturation 97.2 Vent Mode 3l nc FiO2 32.0 Sodium Potassium Chloride Carbon Dioxide Anion Gap BUN Creatinine Est GFR ( Amer) Est GFR (Non-Af Amer) POC Glucose (mg/dL) 92 Random Glucose Lactic Acid Calcium Total Bilirubin Direct Bilirubin AST ALT Alkaline Phosphatase Total Protein Albumin Globulin Albumin/Globulin Ratio Salicylates 10.4 Urine Opiates Screen Urine Methadone Screen Ur Barbiturates Screen Ur Phencyclidine Scrn Ur Amphetamines Screen U Benzodiazepines Scrn U Oth Cocaine Metabols U Cannabinoids Screen Serum Ketones Hepatitis A IgM Ab Hep Bs Antigen Hep B Core IgM Ab Hepatitis C Antibody 02/06/18 02/06/18 02/06/18 04:20 04:20 04:20 WBC 8.3 RBC 4.19 Hgb 12.7 Hct 37.0 MCV 88.4 MCH 30.3 MCHC 34.3 RDW 12.5 Plt Count 239 MPV 8.7 Neut % (Auto) 64.7 Lymph % (Auto) 25.8 [place] % (Auto) 8.7 Eos % (Auto) 0.6 Baso % (Auto) 0.2 Neut # (Auto) 5.4 Lymph # (Auto) 2.1 [place] # (Auto) 0.7 Eos # (Auto) 0.1 Baso # (Auto) 0.0 PT 17.0 H INR 1.5 H APTT 33.8 pCO2 pO2 HCO3 ABG pH ABG Total CO2 ABG O2 Saturation ABG O2 Content ABG Base Excess ABG Hemoglobin ABG Carboxyhemoglobin POC ABG HHb (Measured) ABG Methemoglobin ABG O2 Capacity Jarred Test A-a O2 Difference Hgb O2 Saturation Vent Mode FiO2 Sodium 136 Potassium 3.8 Chloride 103 Carbon Dioxide 25 Anion Gap 12 BUN 6 L Creatinine 0.5 L Est GFR ( Amer) > 60 Est GFR (Non-Af Amer) > 60 POC Glucose (mg/dL) Random Glucose 125 H Lactic Acid Calcium 7.9 L Total Bilirubin 0.5 Direct Bilirubin AST 2375 H ALT 2528 H Alkaline Phosphatase 44 Total Protein 6.3 Albumin 3.5 Globulin 2.8 Albumin/Globulin Ratio 1.2 Salicylates Urine Opiates Screen Urine Methadone Screen Ur Barbiturates Screen Ur Phencyclidine Scrn Ur Amphetamines Screen U Benzodiazepines Scrn U Oth Cocaine Metabols U Cannabinoids Screen Serum Ketones Negative Hepatitis A IgM Ab Hep Bs Antigen Hep B Core IgM Ab Hepatitis C Antibody 02/06/18 02/06/18 12:55 12:55 WBC RBC Hgb Hct MCV MCH MCHC RDW Plt Count MPV Neut % (Auto) Lymph % (Auto) [place] % (Auto) Eos % (Auto) Baso % (Auto) Neut # (Auto) Lymph # (Auto) [place] # (Auto) Eos # (Auto) Baso # (Auto) PT 17.5 H INR 1.6 H APTT 33.1 pCO2 pO2 HCO3 ABG pH ABG Total CO2 ABG O2 Saturation ABG O2 Content ABG Base Excess ABG Hemoglobin ABG Carboxyhemoglobin POC ABG HHb (Measured) ABG Methemoglobin ABG O2 Capacity Jarred Test A-a O2 Difference Hgb O2 Saturation Vent Mode FiO2 Sodium Potassium Chloride Carbon Dioxide Anion Gap BUN Creatinine Est GFR ( Amer) Est GFR (Non-Af Amer) POC Glucose (mg/dL) Random Glucose Lactic Acid Calcium Total Bilirubin 0.4 Direct Bilirubin 0.3 AST 1236 H ALT 1892 H Alkaline Phosphatase 58 Total Protein 6.3 Albumin 3.4 L Globulin 3.0 Albumin/Globulin Ratio 1.1 Salicylates Urine Opiates Screen Urine Methadone Screen Ur Barbiturates Screen Ur Phencyclidine Scrn Ur Amphetamines Screen U Benzodiazepines Scrn U Oth Cocaine Metabols U Cannabinoids Screen Serum Ketones Hepatitis A IgM Ab Hep Bs Antigen Hep B Core IgM Ab Hepatitis C Antibody Assessment & Plan - Assessment and Plan (Free Text) Plan: Patient seen and examined. Agree with plan outlined above.
--- NOTE | 2018-02-06 07:52 | CP.PCM.CON ---
History of Present Illness - History of Present Illness History of Present Illness: Psychiatry consult CC: "I took too many pills." HPI: 22 yo female w/ no significant past medical or psychiatric history presents s/p impulsive suicide attempt by taking ~10 tablets of Tylenol on Monday after she found out that her significant other was cheating on her. She reports that she made the attempt while she was at home and her children were also present in the home under the care of her sister. She reports that she is remorseful of her suicide attempt and does not believe she needs any psychiatric admission or treatment at this time. She denies feeling acutely depressed or anxious. No AH/VH. Denies active suicidal ideation/plan/intent. Denies HI. Denies paranoia/delusions. PMH: Obesity PPH: No past psychiatric history; no history of suicide attempts PSH; Cesarian Section SH: Light smoker; occasional Alcohol; No illegal drug use; Lives w/ sister and two children FH: Mother and Sister with Asthma Allergies: NKDA Medication: Denies Impression: 22 yo female admitted to the ICU s/p suicide attempt by overdose on Tylenol. Patient is not agreeable to inpatient psychiatric admission at this time. Recommendation: -Screen for involuntary psychiatric admission when patient is medically stable -Continue 1:1 for suicide precautions -SW should call DCP&P to report incident Past Patient History - Infectious Disease Hx of Infectious Diseases: None - Past Medical History & Family History Past Medical History?: No - Past Social History Smoking Status: Former Smoker Chewing Tobacco Use: No Cigar Use: No Alcohol: Occasional Drugs: Denies Home Situation {Lives}: With Family - CARDIAC Hx Cardiac Disorders: No - PULMONARY Hx Respiratory Disorders: No - NEUROLOGICAL Hx Neurological Disorder: No - HEENT Hx HEENT Problems: No - RENAL Hx Chronic Kidney Disease: No - ENDOCRINE/METABOLIC Hx Endocrine Disorders: No - HEMATOLOGICAL/ONCOLOGICAL Hx Blood Disorders: No - INTEGUMENTARY Hx Dermatological Problems: No - MUSCULOSKELETAL/RHEUMATOLOGICAL Hx Musculoskeletal Disorders: No - GASTROINTESTINAL Hx Gastrointestinal Disorders: No - GENITOURINARY/GYNECOLOGICAL Hx Genitourinary Disorders: No - PSYCHIATRIC Hx Psychophysiologic Disorder: No Hx Substance Use: No - SURGICAL HISTORY Hx Section: Yes - ANESTHESIA Hx Anesthesia: Yes Hx Anesthesia Reactions: No Meds Allergies/Adverse Reactions: Allergies Allergy/AdvReac Type Severity Reaction Status Date / Time No Known Allergies Allergy Verified 07/27/14 03:09 - Medications Medications: Current Medications Potassium Chloride/Dextrose/Sod Cl (Potassium Chl 20 Meq In D5-Ns) 1,000 mls @ 100 mls/hr IV .Q10H BHARGAV Stop: 02/06/18 22:19 Last Admin: 02/05/18 23:55 Dose: 100 mls/hr Acetylcysteine 8,350 mg/ (Dextrose) 1,041.75 mls @ 62.5 mls/hr IVPB ONCE ONE Stop: 02/06/18 19:07 Last Admin: 02/06/18 03:50 Dose: 62.5 mls/hr Ondansetron HCl (Zofran Odt) 4 mg PO Q8H PRN PRN Reason: Nausea/Vomiting Last Admin: 02/05/18 22:02 Dose: 4 mg Results - Vital Signs Recent Vital Signs: Last Vital Signs Temp 98.1 F 02/06/18 04:00 Pulse 60 02/06/18 06:38 Resp 17 02/06/18 06:38 BP 93/58 L 02/06/18 06:38 Pulse Ox 100 02/06/18 06:38 - Labs Result Diagrams: 02/06/18 04:20 02/06/18 04:20 Labs: Laboratory Results - last 24 hr 02/05/18 02/05/18 02/05/18 15:10 15:10 15:33 WBC 12.0 H RBC 4.66 Hgb 13.9 Hct 41.1 MCV 88.2 D MCH 29.8 MCHC 33.8 RDW 12.8 Plt Count 287 D MPV 8.6 Neut % (Auto) 83.8 H Lymph % (Auto) 8.0 L King % (Auto) 7.8 Eos % (Auto) 0.2 Baso % (Auto) 0.2 Neut # (Auto) 10.1 H Lymph # (Auto) 1.0 King # (Auto) 0.9 H Eos # (Auto) 0.0 Baso # (Auto) 0.0 Neutrophils % (Manual) 84 H Lymphocytes % (Manual) 9 L Monocytes % (Manual) 7 Platelet Estimate Normal RBC Morphology Normal PT INR APTT pCO2 pO2 HCO3 ABG pH ABG Total CO2 ABG O2 Saturation ABG O2 Content ABG Base Excess ABG Hemoglobin ABG Carboxyhemoglobin POC ABG HHb (Measured) ABG Methemoglobin ABG O2 Capacity Jarred Test A-a O2 Difference Hgb O2 Saturation Vent Mode FiO2 Sodium 138 Potassium 3.7 Chloride 101 Carbon Dioxide 19 L Anion Gap 22 H BUN 10 Creatinine 0.7 Est GFR ( Amer) > 60 Est GFR (Non-Af Amer) > 60 POC Glucose (mg/dL) 68 Random Glucose 79 Lactic Acid Calcium 8.7 Total Bilirubin 0.9 AST 4129 H ALT 3033 H Alkaline Phosphatase 89 Total Protein 7.8 Albumin 4.3 Globulin 3.5 Albumin/Globulin Ratio 1.2 Lipase 99 Urine Color Urine Clarity Urine pH Ur Specific [place] Urine Protein Urine Glucose (UA) Urine Ketones Urine Blood Urine Nitrate Urine Bilirubin Urine Urobilinogen Ur Leukocyte Esterase Urine RBC (Auto) Urine Microscopic WBC Ur Squamous Epith Cells Urine Bacteria Hyaline Casts Granular Casts (Auto) Salicylates Urine Opiates Screen Urine Methadone Screen Acetaminophen Ur Barbiturates Screen Ur Phencyclidine Scrn Ur Amphetamines Screen U Benzodiazepines Scrn U Oth Cocaine Metabols U Cannabinoids Screen Hepatitis A IgM Ab Hep Bs Antigen Hep B Core IgM Ab Hepatitis C Antibody 02/05/18 02/05/18 02/05/18 16:03 18:40 18:40 WBC RBC Hgb Hct MCV MCH MCHC RDW Plt Count MPV Neut % (Auto) Lymph % (Auto) King % (Auto) Eos % (Auto) Baso % (Auto) Neut # (Auto) Lymph # (Auto) King # (Auto) Eos # (Auto) Baso # (Auto) Neutrophils % (Manual) Lymphocytes % (Manual) Monocytes % (Manual) Platelet Estimate RBC Morphology PT 18.2 H INR 1.6 H APTT 34.4 pCO2 pO2 HCO3 ABG pH ABG Total CO2 ABG O2 Saturation ABG O2 Content ABG Base Excess ABG Hemoglobin ABG Carboxyhemoglobin POC ABG HHb (Measured) ABG Methemoglobin ABG O2 Capacity Jarred Test A-a O2 Difference Hgb O2 Saturation Vent Mode FiO2 Sodium Potassium Chloride Carbon Dioxide Anion Gap BUN Creatinine Est GFR ( Amer) Est GFR (Non-Af Amer) POC Glucose (mg/dL) Random Glucose Lactic Acid Calcium Total Bilirubin AST ALT Alkaline Phosphatase Total Protein Albumin Globulin Albumin/Globulin Ratio Lipase Urine Color Jeanne Urine Clarity Turbid Urine pH 5.0 Ur Specific [place] 1.029 Urine Protein >=500 Urine Glucose (UA) Neg Urine Ketones 80 Urine Blood Small Urine Nitrate Negative Urine Bilirubin Negative Urine Urobilinogen 4.0 H Ur Leukocyte Esterase Neg Urine RBC (Auto) 5 H Urine Microscopic WBC 18 H Ur Squamous Epith Cells 3 Urine Bacteria Many H Hyaline Casts 0-2 Granular Casts (Auto) 0-2 Salicylates Urine Opiates Screen Urine Methadone Screen Acetaminophen Ur Barbiturates Screen Ur Phencyclidine Scrn Ur Amphetamines Screen U Benzodiazepines Scrn U Oth Cocaine Metabols U Cannabinoids Screen Hepatitis A IgM Ab Negative Hep Bs Antigen Negative Hep B Core IgM Ab Negative Hepatitis C Antibody Negative 02/05/18 02/05/18 02/05/18 18:40 20:06 20:20 WBC RBC Hgb Hct MCV MCH MCHC RDW Plt Count MPV Neut % (Auto) Lymph % (Auto) King % (Auto) Eos % (Auto) Baso % (Auto) Neut # (Auto) Lymph # (Auto) King # (Auto) Eos # (Auto) Baso # (Auto) Neutrophils % (Manual) Lymphocytes % (Manual) Monocytes % (Manual) Platelet Estimate RBC Morphology PT INR APTT pCO2 pO2 HCO3 ABG pH ABG Total CO2 ABG O2 Saturation ABG O2 Content ABG Base Excess ABG Hemoglobin ABG Carboxyhemoglobin POC ABG HHb (Measured) ABG Methemoglobin ABG O2 Capacity Jarred Test A-a O2 Difference Hgb O2 Saturation Vent Mode FiO2 Sodium Potassium Chloride Carbon Dioxide Anion Gap BUN Creatinine Est GFR ( Amer) Est GFR (Non-Af Amer) POC Glucose (mg/dL) Random Glucose Lactic Acid 1.0 Calcium Total Bilirubin AST ALT Alkaline Phosphatase Total Protein Albumin Globulin Albumin/Globulin Ratio Lipase Urine Color Urine Clarity Urine pH Ur Specific [place] Urine Protein Urine Glucose (UA) Urine Ketones Urine Blood Urine Nitrate Urine Bilirubin Urine Urobilinogen Ur Leukocyte Esterase Urine RBC (Auto) Urine Microscopic WBC Ur Squamous Epith Cells Urine Bacteria Hyaline Casts Granular Casts (Auto) Salicylates Urine Opiates Screen Negative Urine Methadone Screen Negative Acetaminophen < 10.0 L Ur Barbiturates Screen Negative Ur Phencyclidine Scrn Negative Ur Amphetamines Screen Negative U Benzodiazepines Scrn Negative U Oth Cocaine Metabols Negative U Cannabinoids Screen Negative Hepatitis A IgM Ab Hep Bs Antigen Hep B Core IgM Ab Hepatitis C Antibody 02/05/18 02/05/18 02/05/18 20:25 23:09 23:35 WBC RBC Hgb Hct MCV MCH MCHC RDW Plt Count MPV Neut % (Auto) Lymph % (Auto) King % (Auto) Eos % (Auto) Baso % (Auto) Neut # (Auto) Lymph # (Auto) King # (Auto) Eos # (Auto) Baso # (Auto) Neutrophils % (Manual) Lymphocytes % (Manual) Monocytes % (Manual) Platelet Estimate RBC Morphology PT INR APTT pCO2 38 pO2 155 H HCO3 25.2 ABG pH 7.42 ABG Total CO2 25.8 ABG O2 Saturation 100.3 H ABG O2 Content 17.8 ABG Base Excess 0.3 ABG Hemoglobin 12.8 ABG Carboxyhemoglobin 2.1 H POC ABG HHb (Measured) -0.3 L ABG Methemoglobin 1.0 ABG O2 Capacity 17.7 Jarred Test Yes A-a O2 Difference 26.0 Hgb O2 Saturation 97.2 Vent Mode 3l nc FiO2 32.0 Sodium Potassium Chloride Carbon Dioxide Anion Gap BUN Creatinine Est GFR ( Amer) Est GFR (Non-Af Amer) POC Glucose (mg/dL) 92 Random Glucose Lactic Acid Calcium Total Bilirubin AST ALT Alkaline Phosphatase Total Protein Albumin Globulin Albumin/Globulin Ratio Lipase Urine Color Urine Clarity Urine pH Ur Specific [place] Urine Protein Urine Glucose (UA) Urine Ketones Urine Blood Urine Nitrate Urine Bilirubin Urine Urobilinogen Ur Leukocyte Esterase Urine RBC (Auto) Urine Microscopic WBC Ur Squamous Epith Cells Urine Bacteria Hyaline Casts Granular Casts (Auto) Salicylates 10.4 Urine Opiates Screen Urine Methadone Screen Acetaminophen Ur Barbiturates Screen Ur Phencyclidine Scrn Ur Amphetamines Screen U Benzodiazepines Scrn U Oth Cocaine Metabols U Cannabinoids Screen Hepatitis A IgM Ab Hep Bs Antigen Hep B Core IgM Ab Hepatitis C Antibody 02/06/18 02/06/18 02/06/18 04:20 04:20 04:20 WBC 8.3 RBC 4.19 Hgb 12.7 Hct 37.0 MCV 88.4 MCH 30.3 MCHC 34.3 RDW 12.5 Plt Count 239 MPV 8.7 Neut % (Auto) 64.7 Lymph % (Auto) 25.8 King % (Auto) 8.7 Eos % (Auto) 0.6 Baso % (Auto) 0.2 Neut # (Auto) 5.4 Lymph # (Auto) 2.1 King # (Auto) 0.7 Eos # (Auto) 0.1 Baso # (Auto) 0.0 Neutrophils % (Manual) Lymphocytes % (Manual) Monocytes % (Manual) Platelet Estimate RBC Morphology PT 17.0 H INR 1.5 H APTT 33.8 pCO2 pO2 HCO3 ABG pH ABG Total CO2 ABG O2 Saturation ABG O2 Content ABG Base Excess ABG Hemoglobin ABG Carboxyhemoglobin POC ABG HHb (Measured) ABG Methemoglobin ABG O2 Capacity Jarred Test A-a O2 Difference Hgb O2 Saturation Vent Mode FiO2 Sodium 136 Potassium 3.8 Chloride 103 Carbon Dioxide 25 Anion Gap 12 BUN 6 L Creatinine 0.5 L Est GFR ( Amer) > 60 Est GFR (Non-Af Amer) > 60 POC Glucose (mg/dL) Random Glucose 125 H Lactic Acid Calcium 7.9 L Total Bilirubin 0.5 AST 2375 H ALT 2528 H Alkaline Phosphatase 44 Total Protein 6.3 Albumin 3.5 Globulin 2.8 Albumin/Globulin Ratio 1.2 Lipase Urine Color Urine Clarity Urine pH Ur Specific [place] Urine Protein Urine Glucose (UA) Urine Ketones Urine Blood Urine Nitrate Urine Bilirubin Urine Urobilinogen Ur Leukocyte Esterase Urine RBC (Auto) Urine Microscopic WBC Ur Squamous Epith Cells Urine Bacteria Hyaline Casts Granular Casts (Auto) Salicylates Urine Opiates Screen Urine Methadone Screen Acetaminophen Ur Barbiturates Screen Ur Phencyclidine Scrn Ur Amphetamines Screen U Benzodiazepines Scrn U Oth Cocaine Metabols U Cannabinoids Screen Hepatitis A IgM Ab Hep Bs Antigen Hep B Core IgM Ab Hepatitis C Antibody
--- NOTE | 2018-02-06 08:36 | CP.CCUPN ---
CCU Subjective - Physician Review Subjective (Free Text): pt seen and examined at bedside this morning. No acute events overnight. Sitting up at bedside, eating breakfast, no signs of distress. Pleasant mood. No vomiting or diarrhea overnight. Reports feeling better overall. No complaints at this time. AAOX4. No SI/HI. CCU Objective - Vital Signs / Intake & Output Vital Signs (Last 4 hours): Vital Signs Temp Pulse Resp BP Pulse Ox 02/06/18 08:00 98.4 F 84 20 101/65 100 02/06/18 06:38 60 17 93/58 L 100 02/06/18 06:00 91 H 15 138/70 100 02/06/18 04:58 57 L 16 115/59 L 100 Intake and Output (Last 8hrs): Intake & Output 02/05/18 02/06/18 02/06/18 22:59 06:59 14:59 Intake Total 1860 325 Output Total 400 Balance 1460 325 Weight 83.461 kg 83.461 kg Intake: IV 1860 325 Oral 0 Output: Urine 400 Urine, Voided 400 Other: # Voids Urine, Voided 400 1 # Bowel Movements 0 - Physical Exam Physical Exam Limitations: Negative for: Altered Mental Status, Clinical Condition, Intoxication, Psychotic, Uncooperative, Other Head: Positive for: Atraumatic, Normocephalic Pupils: Positive for: PERRL Extroacular Muscles: Positive for: EOMI Conjunctiva: Positive for: Normal. Negative for: Injected, Icteric Mouth: Positive for: Moist Mucous Membranes Respiratory/Chest: Positive for: Clear to Auscultation, Good Air Exchange. Negative for: Respiratory Distress, Accessory Muscle Use, Wheezes, Decreased Breath Sounds, Rales, Rhonchi, Tachypneic Cardiovascular: Positive for: Regular Rate and Rhythm, Murmurs, Normal S1, S2, Peripheal Pulses Present. Negative for: Tachycardic, Bradycardic, Rub, Gallop Abdomen: Positive for: Normal Bowel Sounds. Negative for: Tenderness, Distention, Peritoneal Signs, Rebound, Guarding Upper Extremity: Positive for: Normal Inspection, Normal ROM, NORMAL PULSES, Neurovascularly Intact, Capillary Refill < 2s. Negative for: Cyanosis, Edema Lower Extremity: Positive for: Normal Inspection, NORMAL PULSES, Capillary Refill < 2 s. Negative for: Edema, CALF TENDERNESS, Tenderness, Swelling Neurological: Positive for: GCS=15, CN II-XII Intact, Speech Normal, Motor Func Grossly Intact, Normal Sensory Function, Normal Cerebellar Funct, Memory Normal Skin: Positive for: Warm, Dry, Normal Color. Negative for: Rashes Lymphatic: Negative for: Cervical Adenopathy Psychiatric: Positive for: Alert, Oriented x 3, Normal Insight, Normal Concentration, Normal Affect, Normal Mood. Negative for: Anxious, Agitated, Depressed Mood, Suicidal Ideation, Homicidal Ideation, Hallucinations - Medications Active Medications: Active Medications Generic Name Dose Route Start Last Admin Trade Name Freq PRN Reason Stop Dose Admin Potassium Chloride/Dextrose/Sod Cl 1,000 mls @ 100 mls/hr 02/05/18 22:30 23:55 Potassium Chl 20 Meq In D5-Ns IV 02/06/18 22:19 100 mls/hr .Q10H BHARGAV Administration Acetylcysteine 8,350 mg/ 1,041.75 mls @ 62.5 mls/hr 02/06/18 02:27 02/06/18 03:50 Dextrose IVPB 02/06/18 19:07 62.5 mls/hr ONCE ONE Administration Ondansetron HCl 4 mg 02/05/18 21:58 02/05/18 22:02 Zofran Odt PO 4 mg Q8H PRN Administration Nausea/Vomiting - Patient Studies Lab Studies: Lab Studies 02/06/18 02/06/18 02/06/18 Range/Units 04:20 04:20 04:20 WBC 8.3 (4.8-10.8) K/uL RBC 4.19 (3.80-5.20) Mil/uL Hgb 12.7 (12.0-16.0) g/dL Hct 37.0 (34.0-47.0) % MCV 88.4 (81.0-99.0) fl MCH 30.3 (27.0-31.0) pg MCHC 34.3 (33.0-37.0) g/dL RDW 12.5 (11.5-14.5) % Plt Count 239 (130-400) K/uL MPV 8.7 (7.2-11.7) fl Neut % (Auto) 64.7 (50.0-75.0) % Lymph % (Auto) 25.8 (20.0-40.0) % Tyler % (Auto) 8.7 (0.0-10.0) % Eos % (Auto) 0.6 (0.0-4.0) % Baso % (Auto) 0.2 (0.0-2.0) % Neut # (Auto) 5.4 (1.8-7.0) K/uL Lymph # (Auto) 2.1 (1.0-4.3) K/uL Tyler # (Auto) 0.7 (0.0-0.8) K/uL Eos # (Auto) 0.1 (0.0-0.7) K/uL Baso # (Auto) 0.0 (0.0-0.2) K/uL Neutrophils % (Manual) (42-75) % Lymphocytes % (Manual) (20-50) % Monocytes % (Manual) (0-10) % Platelet Estimate (NORMAL) RBC Morphology (NORMAL) PT 17.0 H (9.8-13.1) Seconds INR 1.5 H (0.9-1.2) APTT 33.8 (25.6-37.1) Seconds pCO2 (35-45) mm/Hg pO2 (80-100) mm/Hg HCO3 (21-28) mmol/L ABG pH (7.35-7.45) ABG Total CO2 (22-28) mmol/L ABG O2 Saturation (95-98) % ABG O2 Content (15-23) ML/dL ABG Base Excess (-2.0-3.0) mmol/L ABG Hemoglobin (11.7-17.4) g/dL ABG Carboxyhemoglobin (0.5-1.5) % POC ABG HHb (Measured) (0.0-5.0) % ABG Methemoglobin (0.0-3.0) % ABG O2 Capacity (16-24) mL/dL Jarred Test A-a O2 Difference mm/Hg Hgb O2 Saturation (95.0-98.0) % Vent Mode FiO2 % Sodium 136 (132-148) mmol/l Potassium 3.8 (3.6-5.0) MMOL/L Chloride 103 (98-107) mmol/L Carbon Dioxide 25 (22-30) mmol/L Anion Gap 12 (10-20) BUN 6 L (7-17) mg/dl Creatinine 0.5 L (0.7-1.2) mg/dl Est GFR ( Amer) > 60 Est GFR (Non-Af Amer) > 60 POC Glucose (mg/dL) (65-110) mg/dL Random Glucose 125 H (65-105) mg/dL Lactic Acid (0.7-2.1) MMOL/L Calcium 7.9 L (8.4-10.2) mg/dL Total Bilirubin 0.5 (0.2-1.3) mg/dl AST 2375 H (14-36) U/L ALT 2528 H (9-52) U/L Alkaline Phosphatase 44 (38-126) U/L Total Protein 6.3 (6.3-8.2) G/DL Albumin 3.5 (3.5-5.0) g/dL Globulin 2.8 (2.2-3.9) gm/dL Albumin/Globulin Ratio 1.2 (1.0-2.1) Lipase (23-300) U/L Urine Color (YELLOW) Urine Clarity (Clear) Urine pH (5.0-8.0) Ur Specific [place] (1.003-1.030) Urine Protein (NEGATIVE) mg/dL Urine Glucose (UA) (Normal) mg/dL Urine Ketones (NEGATIVE) mg/dL Urine Blood (NEGATIVE) Urine Nitrate (NEGATIVE) Urine Bilirubin (NEGATIVE) Urine Urobilinogen (0.2-1.0) mg/dL Ur Leukocyte Esterase (Negative) Ameena/uL Urine RBC (Auto) (0-3) /hpf Urine Microscopic WBC (0-5) /hpf Ur Squamous Epith Cells (0-5) /hpf Urine Bacteria (<OCC) Hyaline Casts (0-2) /hpf Granular Casts (Auto) (0-1) /lpf Salicylates mg/dl Urine Opiates Screen (NEGATIVE) Urine Methadone Screen (NEGATIVE) Acetaminophen (10.0-30.0) ug/ml Ur Barbiturates Screen (NEGATIVE) Ur Phencyclidine Scrn (NEGATIVE) Ur Amphetamines Screen (NEGATIVE) U Benzodiazepines Scrn (NEGATIVE) U Oth Cocaine Metabols (NEGATIVE) U Cannabinoids Screen (NEGATIVE) Hepatitis A IgM Ab (NEGATIVE) Hep Bs Antigen (NEGATIVE) Hep B Core IgM Ab (NEGATIVE) Hepatitis C Antibody (NEGATIVE) 02/05/18 02/05/18 02/05/18 Range/Units 23:35 23:09 20:25 WBC (4.8-10.8) K/uL RBC (3.80-5.20) Mil/uL Hgb (12.0-16.0) g/dL Hct (34.0-47.0) % MCV (81.0-99.0) fl MCH (27.0-31.0) pg MCHC (33.0-37.0) g/dL RDW (11.5-14.5) % Plt Count (130-400) K/uL MPV (7.2-11.7) fl Neut % (Auto) (50.0-75.0) % Lymph % (Auto) (20.0-40.0) % Tyler % (Auto) (0.0-10.0) % Eos % (Auto) (0.0-4.0) % Baso % (Auto) (0.0-2.0) % Neut # (Auto) (1.8-7.0) K/uL Lymph # (Auto) (1.0-4.3) K/uL Tyler # (Auto) (0.0-0.8) K/uL Eos # (Auto) (0.0-0.7) K/uL Baso # (Auto) (0.0-0.2) K/uL Neutrophils % (Manual) (42-75) % Lymphocytes % (Manual) (20-50) % Monocytes % (Manual) (0-10) % Platelet Estimate (NORMAL) RBC Morphology (NORMAL) PT (9.8-13.1) Seconds INR (0.9-1.2) APTT (25.6-37.1) Seconds pCO2 38 (35-45) mm/Hg pO2 155 H (80-100) mm/Hg HCO3 25.2 (21-28) mmol/L ABG pH 7.42 (7.35-7.45) ABG Total CO2 25.8 (22-28) mmol/L ABG O2 Saturation 100.3 H (95-98) % ABG O2 Content 17.8 (15-23) ML/dL ABG Base Excess 0.3 (-2.0-3.0) mmol/L ABG Hemoglobin 12.8 (11.7-17.4) g/dL ABG Carboxyhemoglobin 2.1 H (0.5-1.5) % POC ABG HHb (Measured) -0.3 L (0.0-5.0) % ABG Methemoglobin 1.0 (0.0-3.0) % ABG O2 Capacity 17.7 (16-24) mL/dL Jarred Test Yes A-a O2 Difference 26.0 mm/Hg Hgb O2 Saturation 97.2 (95.0-98.0) % Vent Mode 3l nc FiO2 32.0 % Sodium (132-148) mmol/l Potassium (3.6-5.0) MMOL/L Chloride (98-107) mmol/L Carbon Dioxide (22-30) mmol/L Anion Gap (10-20) BUN (7-17) mg/dl Creatinine (0.7-1.2) mg/dl Est GFR ( Amer) Est GFR (Non-Af Amer) POC Glucose (mg/dL) 92 (65-110) mg/dL Random Glucose (65-105) mg/dL Lactic Acid (0.7-2.1) MMOL/L Calcium (8.4-10.2) mg/dL Total Bilirubin (0.2-1.3) mg/dl AST (14-36) U/L ALT (9-52) U/L Alkaline Phosphatase (38-126) U/L Total Protein (6.3-8.2) G/DL Albumin (3.5-5.0) g/dL Globulin (2.2-3.9) gm/dL Albumin/Globulin Ratio (1.0-2.1) Lipase (23-300) U/L Urine Color (YELLOW) Urine Clarity (Clear) Urine pH (5.0-8.0) Ur Specific [place] (1.003-1.030) Urine Protein (NEGATIVE) mg/dL Urine Glucose (UA) (Normal) mg/dL Urine Ketones (NEGATIVE) mg/dL Urine Blood (NEGATIVE) Urine Nitrate (NEGATIVE) Urine Bilirubin (NEGATIVE) Urine Urobilinogen (0.2-1.0) mg/dL Ur Leukocyte Esterase (Negative) Ameena/uL Urine RBC (Auto) (0-3) /hpf Urine Microscopic WBC (0-5) /hpf Ur Squamous Epith Cells (0-5) /hpf Urine Bacteria (<OCC) Hyaline Casts (0-2) /hpf Granular Casts (Auto) (0-1) /lpf Salicylates 10.4 mg/dl Urine Opiates Screen (NEGATIVE) Urine Methadone Screen (NEGATIVE) Acetaminophen (10.0-30.0) ug/ml Ur Barbiturates Screen (NEGATIVE) Ur Phencyclidine Scrn (NEGATIVE) Ur Amphetamines Screen (NEGATIVE) U Benzodiazepines Scrn (NEGATIVE) U Oth Cocaine Metabols (NEGATIVE) U Cannabinoids Screen (NEGATIVE) Hepatitis A IgM Ab (NEGATIVE) Hep Bs Antigen (NEGATIVE) Hep B Core IgM Ab (NEGATIVE) Hepatitis C Antibody (NEGATIVE) 02/05/18 02/05/18 02/05/18 Range/Units 20:20 20:06 18:40 WBC (4.8-10.8) K/uL RBC (3.80-5.20) Mil/uL Hgb (12.0-16.0) g/dL Hct (34.0-47.0) % MCV (81.0-99.0) fl MCH (27.0-31.0) pg MCHC (33.0-37.0) g/dL RDW (11.5-14.5) % Plt Count (130-400) K/uL MPV (7.2-11.7) fl Neut % (Auto) (50.0-75.0) % Lymph % (Auto) (20.0-40.0) % Tyler % (Auto) (0.0-10.0) % Eos % (Auto) (0.0-4.0) % Baso % (Auto) (0.0-2.0) % Neut # (Auto) (1.8-7.0) K/uL Lymph # (Auto) (1.0-4.3) K/uL Tyler # (Auto) (0.0-0.8) K/uL Eos # (Auto) (0.0-0.7) K/uL Baso # (Auto) (0.0-0.2) K/uL Neutrophils % (Manual) (42-75) % Lymphocytes % (Manual) (20-50) % Monocytes % (Manual) (0-10) % Platelet Estimate (NORMAL) RBC Morphology (NORMAL) PT (9.8-13.1) Seconds INR (0.9-1.2) APTT (25.6-37.1) Seconds pCO2 (35-45) mm/Hg pO2 (80-100) mm/Hg HCO3 (21-28) mmol/L ABG pH (7.35-7.45) ABG Total CO2 (22-28) mmol/L ABG O2 Saturation (95-98) % ABG O2 Content (15-23) ML/dL ABG Base Excess (-2.0-3.0) mmol/L ABG Hemoglobin (11.7-17.4) g/dL ABG Carboxyhemoglobin (0.5-1.5) % POC ABG HHb (Measured) (0.0-5.0) % ABG Methemoglobin (0.0-3.0) % ABG O2 Capacity (16-24) mL/dL Jarred Test A-a O2 Difference mm/Hg Hgb O2 Saturation (95.0-98.0) % Vent Mode FiO2 % Sodium (132-148) mmol/l Potassium (3.6-5.0) MMOL/L Chloride (98-107) mmol/L Carbon Dioxide (22-30) mmol/L Anion Gap (10-20) BUN (7-17) mg/dl Creatinine (0.7-1.2) mg/dl Est GFR ( Amer) Est GFR (Non-Af Amer) POC Glucose (mg/dL) (65-110) mg/dL Random Glucose (65-105) mg/dL Lactic Acid 1.0 (0.7-2.1) MMOL/L Calcium (8.4-10.2) mg/dL Total Bilirubin (0.2-1.3) mg/dl AST (14-36) U/L ALT (9-52) U/L Alkaline Phosphatase (38-126) U/L Total Protein (6.3-8.2) G/DL Albumin (3.5-5.0) g/dL Globulin (2.2-3.9) gm/dL Albumin/Globulin Ratio (1.0-2.1) Lipase (23-300) U/L Urine Color (YELLOW) Urine Clarity (Clear) Urine pH (5.0-8.0) Ur Specific [place] (1.003-1.030) Urine Protein (NEGATIVE) mg/dL Urine Glucose (UA) (Normal) mg/dL Urine Ketones (NEGATIVE) mg/dL Urine Blood (NEGATIVE) Urine Nitrate (NEGATIVE) Urine Bilirubin (NEGATIVE) Urine Urobilinogen (0.2-1.0) mg/dL Ur Leukocyte Esterase (Negative) Ameena/uL Urine RBC (Auto) (0-3) /hpf Urine Microscopic WBC (0-5) /hpf Ur Squamous Epith Cells (0-5) /hpf Urine Bacteria (<OCC) Hyaline Casts (0-2) /hpf Granular Casts (Auto) (0-1) /lpf Salicylates mg/dl Urine Opiates Screen Negative (NEGATIVE) Urine Methadone Screen Negative (NEGATIVE) Acetaminophen < 10.0 L (10.0-30.0) ug/ml Ur Barbiturates Screen Negative (NEGATIVE) Ur Phencyclidine Scrn Negative (NEGATIVE) Ur Amphetamines Screen Negative (NEGATIVE) U Benzodiazepines Scrn Negative (NEGATIVE) U Oth Cocaine Metabols Negative (NEGATIVE) U Cannabinoids Screen Negative (NEGATIVE) Hepatitis A IgM Ab (NEGATIVE) Hep Bs Antigen (NEGATIVE) Hep B Core IgM Ab (NEGATIVE) Hepatitis C Antibody (NEGATIVE) 02/05/18 02/05/18 02/05/18 Range/Units 18:40 18:40 16:03 WBC (4.8-10.8) K/uL RBC (3.80-5.20) Mil/uL Hgb (12.0-16.0) g/dL Hct (34.0-47.0) % MCV (81.0-99.0) fl MCH (27.0-31.0) pg MCHC (33.0-37.0) g/dL RDW (11.5-14.5) % Plt Count (130-400) K/uL MPV (7.2-11.7) fl Neut % (Auto) (50.0-75.0) % Lymph % (Auto) (20.0-40.0) % Tyler % (Auto) (0.0-10.0) % Eos % (Auto) (0.0-4.0) % Baso % (Auto) (0.0-2.0) % Neut # (Auto) (1.8-7.0) K/uL Lymph # (Auto) (1.0-4.3) K/uL Tyler # (Auto) (0.0-0.8) K/uL Eos # (Auto) (0.0-0.7) K/uL Baso # (Auto) (0.0-0.2) K/uL Neutrophils % (Manual) (42-75) % Lymphocytes % (Manual) (20-50) % Monocytes % (Manual) (0-10) % Platelet Estimate (NORMAL) RBC Morphology (NORMAL) PT 18.2 H (9.8-13.1) Seconds INR 1.6 H (0.9-1.2) APTT 34.4 (25.6-37.1) Seconds pCO2 (35-45) mm/Hg pO2 (80-100) mm/Hg HCO3 (21-28) mmol/L ABG pH (7.35-7.45) ABG Total CO2 (22-28) mmol/L ABG O2 Saturation (95-98) % ABG O2 Content (15-23) ML/dL ABG Base Excess (-2.0-3.0) mmol/L ABG Hemoglobin (11.7-17.4) g/dL ABG Carboxyhemoglobin (0.5-1.5) % POC ABG HHb (Measured) (0.0-5.0) % ABG Methemoglobin (0.0-3.0) % ABG O2 Capacity (16-24) mL/dL Jarred Test A-a O2 Difference mm/Hg Hgb O2 Saturation (95.0-98.0) % Vent Mode FiO2 % Sodium (132-148) mmol/l Potassium (3.6-5.0) MMOL/L Chloride (98-107) mmol/L Carbon Dioxide (22-30) mmol/L Anion Gap (10-20) BUN (7-17) mg/dl Creatinine (0.7-1.2) mg/dl Est GFR ( Amer) Est GFR (Non-Af Amer) POC Glucose (mg/dL) (65-110) mg/dL Random Glucose (65-105) mg/dL Lactic Acid (0.7-2.1) MMOL/L Calcium (8.4-10.2) mg/dL Total Bilirubin (0.2-1.3) mg/dl AST (14-36) U/L ALT (9-52) U/L Alkaline Phosphatase (38-126) U/L Total Protein (6.3-8.2) G/DL Albumin (3.5-5.0) g/dL Globulin (2.2-3.9) gm/dL Albumin/Globulin Ratio (1.0-2.1) Lipase (23-300) U/L Urine Color Jeanne (YELLOW) Urine Clarity Turbid (Clear) Urine pH 5.0 (5.0-8.0) Ur Specific [place] 1.029 (1.003-1.030) Urine Protein >=500 (NEGATIVE) mg/dL Urine Glucose (UA) Neg (Normal) mg/dL Urine Ketones 80 (NEGATIVE) mg/dL Urine Blood Small (NEGATIVE) Urine Nitrate Negative (NEGATIVE) Urine Bilirubin Negative (NEGATIVE) Urine Urobilinogen 4.0 H (0.2-1.0) mg/dL Ur Leukocyte Esterase Neg (Negative) Ameena/uL Urine RBC (Auto) 5 H (0-3) /hpf Urine Microscopic WBC 18 H (0-5) /hpf Ur Squamous Epith Cells 3 (0-5) /hpf Urine Bacteria Many H (<OCC) Hyaline Casts 0-2 (0-2) /hpf Granular Casts (Auto) 0-2 (0-1) /lpf Salicylates mg/dl Urine Opiates Screen (NEGATIVE) Urine Methadone Screen (NEGATIVE) Acetaminophen (10.0-30.0) ug/ml Ur Barbiturates Screen (NEGATIVE) Ur Phencyclidine Scrn (NEGATIVE) Ur Amphetamines Screen (NEGATIVE) U Benzodiazepines Scrn (NEGATIVE) U Oth Cocaine Metabols (NEGATIVE) U Cannabinoids Screen (NEGATIVE) Hepatitis A IgM Ab Negative (NEGATIVE) Hep Bs Antigen Negative (NEGATIVE) Hep B Core IgM Ab Negative (NEGATIVE) Hepatitis C Antibody Negative (NEGATIVE) 02/05/18 02/05/18 02/05/18 Range/Units 15:33 15:10 15:10 WBC 12.0 H (4.8-10.8) K/uL RBC 4.66 (3.80-5.20) Mil/uL Hgb 13.9 (12.0-16.0) g/dL Hct 41.1 (34.0-47.0) % MCV 88.2 D (81.0-99.0) fl MCH 29.8 (27.0-31.0) pg MCHC 33.8 (33.0-37.0) g/dL RDW 12.8 (11.5-14.5) % Plt Count 287 D (130-400) K/uL MPV 8.6 (7.2-11.7) fl Neut % (Auto) 83.8 H (50.0-75.0) % Lymph % (Auto) 8.0 L (20.0-40.0) % Tyler % (Auto) 7.8 (0.0-10.0) % Eos % (Auto) 0.2 (0.0-4.0) % Baso % (Auto) 0.2 (0.0-2.0) % Neut # (Auto) 10.1 H (1.8-7.0) K/uL Lymph # (Auto) 1.0 (1.0-4.3) K/uL Tyler # (Auto) 0.9 H (0.0-0.8) K/uL Eos # (Auto) 0.0 (0.0-0.7) K/uL Baso # (Auto) 0.0 (0.0-0.2) K/uL Neutrophils % (Manual) 84 H (42-75) % Lymphocytes % (Manual) 9 L (20-50) % Monocytes % (Manual) 7 (0-10) % Platelet Estimate Normal (NORMAL) RBC Morphology Normal (NORMAL) PT (9.8-13.1) Seconds INR (0.9-1.2) APTT (25.6-37.1) Seconds pCO2 (35-45) mm/Hg pO2 (80-100) mm/Hg HCO3 (21-28) mmol/L ABG pH (7.35-7.45) ABG Total CO2 (22-28) mmol/L ABG O2 Saturation (95-98) % ABG O2 Content (15-23) ML/dL ABG Base Excess (-2.0-3.0) mmol/L ABG Hemoglobin (11.7-17.4) g/dL ABG Carboxyhemoglobin (0.5-1.5) % POC ABG HHb (Measured) (0.0-5.0) % ABG Methemoglobin (0.0-3.0) % ABG O2 Capacity (16-24) mL/dL Jarred Test A-a O2 Difference mm/Hg Hgb O2 Saturation (95.0-98.0) % Vent Mode FiO2 % Sodium 138 (132-148) mmol/l Potassium 3.7 (3.6-5.0) MMOL/L Chloride 101 (98-107) mmol/L Carbon Dioxide 19 L (22-30) mmol/L Anion Gap 22 H (10-20) BUN 10 (7-17) mg/dl Creatinine 0.7 (0.7-1.2) mg/dl Est GFR ( Amer) > 60 Est GFR (Non-Af Amer) > 60 POC Glucose (mg/dL) 68 (65-110) mg/dL Random Glucose 79 (65-105) mg/dL Lactic Acid (0.7-2.1) MMOL/L Calcium 8.7 (8.4-10.2) mg/dL Total Bilirubin 0.9 (0.2-1.3) mg/dl AST 4129 H (14-36) U/L ALT 3033 H (9-52) U/L Alkaline Phosphatase 89 (38-126) U/L Total Protein 7.8 (6.3-8.2) G/DL Albumin 4.3 (3.5-5.0) g/dL Globulin 3.5 (2.2-3.9) gm/dL Albumin/Globulin Ratio 1.2 (1.0-2.1) Lipase 99 (23-300) U/L Urine Color (YELLOW) Urine Clarity (Clear) Urine pH (5.0-8.0) Ur Specific [place] (1.003-1.030) Urine Protein (NEGATIVE) mg/dL Urine Glucose (UA) (Normal) mg/dL Urine Ketones (NEGATIVE) mg/dL Urine Blood (NEGATIVE) Urine Nitrate (NEGATIVE) Urine Bilirubin (NEGATIVE) Urine Urobilinogen (0.2-1.0) mg/dL Ur Leukocyte Esterase (Negative) Ameena/uL Urine RBC (Auto) (0-3) /hpf Urine Microscopic WBC (0-5) /hpf Ur Squamous Epith Cells (0-5) /hpf Urine Bacteria (<OCC) Hyaline Casts (0-2) /hpf Granular Casts (Auto) (0-1) /lpf Salicylates mg/dl Urine Opiates Screen (NEGATIVE) Urine Methadone Screen (NEGATIVE) Acetaminophen (10.0-30.0) ug/ml Ur Barbiturates Screen (NEGATIVE) Ur Phencyclidine Scrn (NEGATIVE) Ur Amphetamines Screen (NEGATIVE) U Benzodiazepines Scrn (NEGATIVE) U Oth Cocaine Metabols (NEGATIVE) U Cannabinoids Screen (NEGATIVE) Hepatitis A IgM Ab (NEGATIVE) Hep Bs Antigen (NEGATIVE) Hep B Core IgM Ab (NEGATIVE) Hepatitis C Antibody (NEGATIVE) Laboratory Results - last 24 hr 02/05/18 02/05/18 02/05/18 15:10 15:10 15:33 WBC 12.0 H RBC 4.66 Hgb 13.9 Hct 41.1 MCV 88.2 D MCH 29.8 MCHC 33.8 RDW 12.8 Plt Count 287 D MPV 8.6 Neut % (Auto) 83.8 H Lymph % (Auto) 8.0 L Tyler % (Auto) 7.8 Eos % (Auto) 0.2 Baso % (Auto) 0.2 Neut # (Auto) 10.1 H Lymph # (Auto) 1.0 Tyler # (Auto) 0.9 H Eos # (Auto) 0.0 Baso # (Auto) 0.0 Neutrophils % (Manual) 84 H Lymphocytes % (Manual) 9 L Monocytes % (Manual) 7 Platelet Estimate Normal RBC Morphology Normal PT INR APTT pCO2 pO2 HCO3 ABG pH ABG Total CO2 ABG O2 Saturation ABG O2 Content ABG Base Excess ABG Hemoglobin ABG Carboxyhemoglobin POC ABG HHb (Measured) ABG Methemoglobin ABG O2 Capacity Jarred Test A-a O2 Difference Hgb O2 Saturation Vent Mode FiO2 Sodium 138 Potassium 3.7 Chloride 101 Carbon Dioxide 19 L Anion Gap 22 H BUN 10 Creatinine 0.7 Est GFR ( Amer) > 60 Est GFR (Non-Af Amer) > 60 POC Glucose (mg/dL) 68 Random Glucose 79 Lactic Acid Calcium 8.7 Total Bilirubin 0.9 AST 4129 H ALT 3033 H Alkaline Phosphatase 89 Total Protein 7.8 Albumin 4.3 Globulin 3.5 Albumin/Globulin Ratio 1.2 Lipase 99 Urine Color Urine Clarity Urine pH Ur Specific [place] Urine Protein Urine Glucose (UA) Urine Ketones Urine Blood Urine Nitrate Urine Bilirubin Urine Urobilinogen Ur Leukocyte Esterase Urine RBC (Auto) Urine Microscopic WBC Ur Squamous Epith Cells Urine Bacteria Hyaline Casts Granular Casts (Auto) Salicylates Urine Opiates Screen Urine Methadone Screen Acetaminophen Ur Barbiturates Screen Ur Phencyclidine Scrn Ur Amphetamines Screen U Benzodiazepines Scrn U Oth Cocaine Metabols U Cannabinoids Screen Hepatitis A IgM Ab Hep Bs Antigen Hep B Core IgM Ab Hepatitis C Antibody 02/05/18 02/05/18 02/05/18 16:03 18:40 18:40 WBC RBC Hgb Hct MCV MCH MCHC RDW Plt Count MPV Neut % (Auto) Lymph % (Auto) Tyler % (Auto) Eos % (Auto) Baso % (Auto) Neut # (Auto) Lymph # (Auto) Tyler # (Auto) Eos # (Auto) Baso # (Auto) Neutrophils % (Manual) Lymphocytes % (Manual) Monocytes % (Manual) Platelet Estimate RBC Morphology PT 18.2 H INR 1.6 H APTT 34.4 pCO2 pO2 HCO3 ABG pH ABG Total CO2 ABG O2 Saturation ABG O2 Content ABG Base Excess ABG Hemoglobin ABG Carboxyhemoglobin POC ABG HHb (Measured) ABG Methemoglobin ABG O2 Capacity Jarred Test A-a O2 Difference Hgb O2 Saturation Vent Mode FiO2 Sodium Potassium Chloride Carbon Dioxide Anion Gap BUN Creatinine Est GFR ( Amer) Est GFR (Non-Af Amer) POC Glucose (mg/dL) Random Glucose Lactic Acid Calcium Total Bilirubin AST ALT Alkaline Phosphatase Total Protein Albumin Globulin Albumin/Globulin Ratio Lipase Urine Color Jeanne Urine Clarity Turbid Urine pH 5.0 Ur Specific [place] 1.029 Urine Protein >=500 Urine Glucose (UA) Neg Urine Ketones 80 Urine Blood Small Urine Nitrate Negative Urine Bilirubin Negative Urine Urobilinogen 4.0 H Ur Leukocyte Esterase Neg Urine RBC (Auto) 5 H Urine Microscopic WBC 18 H Ur Squamous Epith Cells 3 Urine Bacteria Many H Hyaline Casts 0-2 Granular Casts (Auto) 0-2 Salicylates Urine Opiates Screen Urine Methadone Screen Acetaminophen Ur Barbiturates Screen Ur Phencyclidine Scrn Ur Amphetamines Screen U Benzodiazepines Scrn U Oth Cocaine Metabols U Cannabinoids Screen Hepatitis A IgM Ab Negative Hep Bs Antigen Negative Hep B Core IgM Ab Negative Hepatitis C Antibody Negative 02/05/18 02/05/18 02/05/18 18:40 20:06 20:20 WBC RBC Hgb Hct MCV MCH MCHC RDW Plt Count MPV Neut % (Auto) Lymph % (Auto) Tyler % (Auto) Eos % (Auto) Baso % (Auto) Neut # (Auto) Lymph # (Auto) Tyler # (Auto) Eos # (Auto) Baso # (Auto) Neutrophils % (Manual) Lymphocytes % (Manual) Monocytes % (Manual) Platelet Estimate RBC Morphology PT INR APTT pCO2 pO2 HCO3 ABG pH ABG Total CO2 ABG O2 Saturation ABG O2 Content ABG Base Excess ABG Hemoglobin ABG Carboxyhemoglobin POC ABG HHb (Measured) ABG Methemoglobin ABG O2 Capacity Jarred Test A-a O2 Difference Hgb O2 Saturation Vent Mode FiO2 Sodium Potassium Chloride Carbon Dioxide Anion Gap BUN Creatinine Est GFR ( Amer) Est GFR (Non-Af Amer) POC Glucose (mg/dL) Random Glucose Lactic Acid 1.0 Calcium Total Bilirubin AST ALT Alkaline Phosphatase Total Protein Albumin Globulin Albumin/Globulin Ratio Lipase Urine Color Urine Clarity Urine pH Ur Specific [place] Urine Protein Urine Glucose (UA) Urine Ketones Urine Blood Urine Nitrate Urine Bilirubin Urine Urobilinogen Ur Leukocyte Esterase Urine RBC (Auto) Urine Microscopic WBC Ur Squamous Epith Cells Urine Bacteria Hyaline Casts Granular Casts (Auto) Salicylates Urine Opiates Screen Negative Urine Methadone Screen Negative Acetaminophen < 10.0 L Ur Barbiturates Screen Negative Ur Phencyclidine Scrn Negative Ur Amphetamines Screen Negative U Benzodiazepines Scrn Negative U Oth Cocaine Metabols Negative U Cannabinoids Screen Negative Hepatitis A IgM Ab Hep Bs Antigen Hep B Core IgM Ab Hepatitis C Antibody 02/05/18 02/05/18 02/05/18 20:25 23:09 23:35 WBC RBC Hgb Hct MCV MCH MCHC RDW Plt Count MPV Neut % (Auto) Lymph % (Auto) [place] % (Auto) Eos % (Auto) Baso % (Auto) Neut # (Auto) Lymph # (Auto) Tyler # (Auto) Eos # (Auto) Baso # (Auto) Neutrophils % (Manual) Lymphocytes % (Manual) Monocytes % (Manual) Platelet Estimate RBC Morphology PT INR APTT pCO2 38 pO2 155 H HCO3 25.2 ABG pH 7.42 ABG Total CO2 25.8 ABG O2 Saturation 100.3 H ABG O2 Content 17.8 ABG Base Excess 0.3 ABG Hemoglobin 12.8 ABG Carboxyhemoglobin 2.1 H POC ABG HHb (Measured) -0.3 L ABG Methemoglobin 1.0 ABG O2 Capacity 17.7 Jarred Test Yes A-a O2 Difference 26.0 Hgb O2 Saturation 97.2 Vent Mode 3l nc FiO2 32.0 Sodium Potassium Chloride Carbon Dioxide Anion Gap BUN Creatinine Est GFR ( Amer) Est GFR (Non-Af Amer) POC Glucose (mg/dL) 92 Random Glucose Lactic Acid Calcium Total Bilirubin AST ALT Alkaline Phosphatase Total Protein Albumin Globulin Albumin/Globulin Ratio Lipase Urine Color Urine Clarity Urine pH Ur Specific [place] Urine Protein Urine Glucose (UA) Urine Ketones Urine Blood Urine Nitrate Urine Bilirubin Urine Urobilinogen Ur Leukocyte Esterase Urine RBC (Auto) Urine Microscopic WBC Ur Squamous Epith Cells Urine Bacteria Hyaline Casts Granular Casts (Auto) Salicylates 10.4 Urine Opiates Screen Urine Methadone Screen Acetaminophen Ur Barbiturates Screen Ur Phencyclidine Scrn Ur Amphetamines Screen U Benzodiazepines Scrn U Oth Cocaine Metabols U Cannabinoids Screen Hepatitis A IgM Ab Hep Bs Antigen Hep B Core IgM Ab Hepatitis C Antibody 02/06/18 02/06/18 02/06/18 04:20 04:20 04:20 WBC 8.3 RBC 4.19 Hgb 12.7 Hct 37.0 MCV 88.4 MCH 30.3 MCHC 34.3 RDW 12.5 Plt Count 239 MPV 8.7 Neut % (Auto) 64.7 Lymph % (Auto) 25.8 Tyler % (Auto) 8.7 Eos % (Auto) 0.6 Baso % (Auto) 0.2 Neut # (Auto) 5.4 Lymph # (Auto) 2.1 Tyler # (Auto) 0.7 Eos # (Auto) 0.1 Baso # (Auto) 0.0 Neutrophils % (Manual) Lymphocytes % (Manual) Monocytes % (Manual) Platelet Estimate RBC Morphology PT 17.0 H INR 1.5 H APTT 33.8 pCO2 pO2 HCO3 ABG pH ABG Total CO2 ABG O2 Saturation ABG O2 Content ABG Base Excess ABG Hemoglobin ABG Carboxyhemoglobin POC ABG HHb (Measured) ABG Methemoglobin ABG O2 Capacity Jarred Test A-a O2 Difference Hgb O2 Saturation Vent Mode FiO2 Sodium 136 Potassium 3.8 Chloride 103 Carbon Dioxide 25 Anion Gap 12 BUN 6 L Creatinine 0.5 L Est GFR ( Amer) > 60 Est GFR (Non-Af Amer) > 60 POC Glucose (mg/dL) Random Glucose 125 H Lactic Acid Calcium 7.9 L Total Bilirubin 0.5 AST 2375 H ALT 2528 H Alkaline Phosphatase 44 Total Protein 6.3 Albumin 3.5 Globulin 2.8 Albumin/Globulin Ratio 1.2 Lipase Urine Color Urine Clarity Urine pH Ur Specific [place] Urine Protein Urine Glucose (UA) Urine Ketones Urine Blood Urine Nitrate Urine Bilirubin Urine Urobilinogen Ur Leukocyte Esterase Urine RBC (Auto) Urine Microscopic WBC Ur Squamous Epith Cells Urine Bacteria Hyaline Casts Granular Casts (Auto) Salicylates Urine Opiates Screen Urine Methadone Screen Acetaminophen Ur Barbiturates Screen Ur Phencyclidine Scrn Ur Amphetamines Screen U Benzodiazepines Scrn U Oth Cocaine Metabols U Cannabinoids Screen Hepatitis A IgM Ab Hep Bs Antigen Hep B Core IgM Ab Hepatitis C Antibody Fingerstick Blood Sugar Results: 92 Review of Systems - Constitutional Constitutional: absent: Fever, Chills, Sweats, Weakness, Malaise - EENT Eyes: UNREMARKABLE Ears: UNREMARKABLE Nose/Mouth/Throat: UNREMARKABLE - Breasts Breasts: UNREMARKABLE - Cardiovascular Cardiovascular: UNREMARKABLE - Respiratory Respiratory: UNREMARKABLE - Gastrointestinal Gastrointestinal: UNREMARKABLE - Genitourinary Genitourinary: UNREMARKABLE - Musculoskeletal Musculoskeletal: UNREMARKABLE - Integumentary Integumentary: UNREMARKABLE - Neurological Neurological: UNREMARKABLE - Psychiatric Psychiatric: UNREMARKABLE Critical Care Progress Note - Nutrition Nutrition: Nutrition Category Date Time Status Regular Diet [DIET] Diets 02/06/18 Breakfast Active Assessment/Plan - Assessment and Plan (Free Text) Assessment: 22 y/o female admitted for APAP Overdose /2 to suicide attempt. Plan: 1) APAP Toxicity due to Intentional Overdose -improving -/ to suicide attempt -no signs of USP -Transaminases trending down, ALT/AST: 2375/2528 -T Bili: 0.5 -INR: 1.5 today -seen by GI, no signs of SHIRA, recommends c/w poison control protocol and advance diet -supportive care -c/w NAC protocol -c/w monitoring transaminases, repeat liver studies pending -c/w monitoring coagulation studies, repeat labs pending 2) Suicidal Attempt -denies SI/HI today -evaluated by psych -c/w 1:1 monitoring -recommends screening for involuntary psychiatric admission when patient is medically stable 3) Leukocytosis -resolved 4) Ketosis -resolved, no serum ketones detected today 5) DVT prophylaxis: -INR 1.5 -SCDs/ambulation 6) Code Status -Full Code
--- NOTE | 2018-02-06 09:58 | CP.PCM.PN ---
Subjective - Date & Time of Evaluation Date of Evaluation: 02/06/18 Time of Evaluation: 09:45 - Subjective Subjective: Pt is alert, oriented VS stable denies abd pain no N/V LFTs better today Pt on Acetylcysteine drip Objective - Vital Signs/Intake and Output Vital Signs (last 24 hours): Temp Pulse Resp BP Pulse Ox 98.4 F 84 20 101/65 100 02/06/18 08:00 02/06/18 08:00 02/06/18 08:00 02/06/18 08:00 02/06/18 08:00 Intake and Output: 02/06/18 02/06/18 06:59 18:59 Intake Total 1860 325 Output Total 400 Balance 1460 325 - Medications Medications: Current Medications Potassium Chloride/Dextrose/Sod Cl (Potassium Chl 20 Meq In D5-Ns) 1,000 mls @ 100 mls/hr IV .Q10H BHARGAV Stop: 02/06/18 22:19 Last Admin: 02/05/18 23:55 Dose: 100 mls/hr Acetylcysteine 8,350 mg/ (Dextrose) 1,041.75 mls @ 62.5 mls/hr IVPB ONCE ONE Stop: 02/06/18 19:07 Last Admin: 02/06/18 03:50 Dose: 62.5 mls/hr Ondansetron HCl (Zofran Odt) 4 mg PO Q8H PRN PRN Reason: Nausea/Vomiting Last Admin: 02/05/18 22:02 Dose: 4 mg - Labs Labs: 02/06/18 04:20 02/06/18 04:20 PT 17.0 Seconds (9.8-13.1) H 02/06/18 04:20 INR 1.5 (0.9-1.2) H 02/06/18 04:20 APTT 33.8 Seconds (25.6-37.1) 02/06/18 04:20 - Constitutional Appears: Non-toxic, No Acute Distress - Head Exam Head Exam: ATRAUMATIC, NORMAL INSPECTION, NORMOCEPHALIC - Eye Exam Eye Exam: EOMI, Normal appearance, PERRL Pupil Exam: NORMAL ACCOMODATION - ENT Exam ENT Exam: Mucous Membranes Moist, Normal External Ear Exam - Neck Exam Neck Exam: Full ROM. absent: Meningismus - Respiratory Exam Respiratory Exam: NORMAL BREATHING PATTERN. absent: Respiratory Distress - Cardiovascular Exam Cardiovascular Exam: REGULAR RHYTHM, +S1, +S2 - GI/Abdominal Exam GI & Abdominal Exam: Soft, Normal Bowel Sounds. absent: Tenderness - Extremities Exam Extremities Exam: Full ROM, Normal Capillary Refill. absent: Calf Tenderness, Pedal Edema - Back Exam Back Exam: Full ROM. absent: CVA tenderness (L), CVA tenderness (R) - Neurological Exam Neurological Exam: Alert, Awake, CN II-XII Intact, Oriented x3 - Psychiatric Exam Psychiatric exam: Normal Affect, Normal Mood - Skin Skin Exam: Dry, Normal Color, Warm Assessment and Plan - Assessment and Plan (Free Text) Assessment: 22 years old female with no significant past medical hx comes 3 days after ingesting a handful of Tylenol. She had some family dispute and wanted to commit suicide. She refers three days of nausea, vomiting associated with intermittent periumbilical abdominal pain. 1. Acetaminophen Overdose in a Suicide attempt - Pt is being monitored in ICU - Pt is stable , denies abd pain and N/V at present - started on ACetylcysteine - Poison Control consulted - GI consulted- discussed csae with Dr Daniel - Consult Psychiatry Dr Nunez - 1:1 Suicide Observation 2. Acute Liver failure with Elevated Liver enzymes and Prolonged INR secondary to Acetaminophen overdose - Consult Dr Daniel GI - Acetylcysteine antidote dose started - Follow LFT /INR/PTT 3. Starvation Ketosis with elevated Ketones in urine - IV fluid with D5/NS and maintenance KCL 4. Reactive leukocytosis - resolved #. DVT Prophylaxis with SCD. No Anticoagulant as INR is already elevated
[2018-02-06 15:31] LABS: INR 1.6 (0.9-1.2); PARTIAL THROMBOPLASTIN TIME 33.1 Seconds (25.6-37.1); PROTHROMBIN TIME 17.5 Seconds (9.8-13.1)
[2018-02-06 15:49] LABS: ALB/GLOB RATIO 1.1 (1.0-2.1); ALBUMIN 3.4 g/dL (3.5-5.0); BILIRUBIN,DIRECT 0.3 mg/ml (0.0-0.4)
[2018-02-07 05:36] LABS: HEMOGLOBIN 12.7 g/dL (12.0-16.0); MEAN CELL VOLUME 89.1 fl (81.0-99.0); MEAN CORPUSCULAR HEMOGLOBIN 30.3 pg (27.0-31.0); MEAN CORPUSCULAR HGB CONC 34.1 g/dL (33.0-37.0); RBC 4.17 Mil/uL (3.80-5.20); RED CELL DISTRIBUTION WIDTH 13.2 % (11.5-14.5); WHITE BLOOD COUNT 7.5 K/uL (4.8-10.8)
[2018-02-07 05:51] LABS: INR 1.3 (0.9-1.2); PROTHROMBIN TIME 14.9 Seconds (9.8-13.1)
[2018-02-07 06:35] LABS: BLOOD UREA NITROGEN 4 mg/dl (7-17); GFR AFRICAN-AMERICAN > 60; GFR NON-AFRICAN AMERICAN > 60
[2018-02-07 06:36] LABS: ALB/GLOB RATIO 1.1 (1.0-2.1); ALBUMIN 3.4 g/dL (3.5-5.0); AST/SGOT 550 U/L (14-36); CALCIUM 8.3 mg/dL (8.4-10.2)
[2018-02-07 06:53] LABS: ALT/SGPT 1420 U/L (9-52)
[2018-02-07] MEDS ORDERED: DEXTROSE 5% IVPB STA (08:58)
[2018-02-07] MEDS ORDERED: WATER IVPB STA (08:58)
[2018-02-07] MEDS ORDERED: ACETYLCYSTEINE IVPB STA (08:58)
--- NOTE | 2018-02-07 10:06 | CP.PCM.PN ---
Subjective - Date & Time of Evaluation Date of Evaluation: 02/07/18 Time of Evaluation: 09:10 - Subjective Subjective: PGY5 GI Fellow Progress Note Patient seen and examined bedside this morning. The patient states that she is feeling much better. Seen eating breakfast without issue. No nausea, vomiting, abdominal pain noted. Denies any bowel movements since admission. Eager to return home. 12 system ROS performed and negative except where stated. Objective - Vital Signs/Intake and Output Vital Signs (last 24 hours): Temp Pulse Resp BP Pulse Ox 98.1 F 90 19 98/50 L 95 02/07/18 08:00 02/07/18 08:00 02/07/18 08:00 02/07/18 08:00 02/07/18 08:00 Intake and Output: 02/07/18 02/07/18 06:59 18:59 Intake Total 125 Output Total 400 Balance 125 -400 - Medications Medications: Current Medications Acetylcysteine 8,360 mg/ (Dextrose) 500 mls @ 32 mls/hr IVPB STAT STA Stop: 02/08/18 00:35 Ondansetron HCl (Zofran Odt) 4 mg PO Q8H PRN PRN Reason: Nausea/Vomiting Last Admin: 02/05/18 22:02 Dose: 4 mg - Labs Labs: 02/07/18 04:35 02/07/18 04:35 PT 14.9 Seconds (9.8-13.1) H 02/07/18 04:35 INR 1.3 (0.9-1.2) H 02/07/18 04:35 APTT 33.1 Seconds (25.6-37.1) 02/06/18 12:55 - Constitutional Appears: Non-toxic, No Acute Distress - Eye Exam Eye Exam: EOMI, PERRL - ENT Exam ENT Exam: Mucous Membranes Moist - Respiratory Exam Respiratory Exam: Clear to Ausculation Bilateral. absent: Rales, Rhonchi, Wheezes - Cardiovascular Exam Cardiovascular Exam: RRR, +S1, +S2 - GI/Abdominal Exam GI & Abdominal Exam: Soft, Normal Bowel Sounds. absent: Distended, Firm, Guarding, Rigid, Tenderness, Organomegaly - Extremities Exam Extremities Exam: Normal Inspection. absent: Pedal Edema - Neurological Exam Neurological Exam: Alert, Awake, Oriented x3 - Psychiatric Exam Psychiatric exam: Normal Affect, Normal Mood - Skin Skin Exam: Dry, Warm Assessment and Plan - Assessment and Plan (Free Text) Assessment: Patient is a 22yo female with PMHx significant for obesity who presented to the ED with nausea, vomiting and decreased appetite -Intentional acetaminophen overdose -Suicide attempt with acetaminophen overdose -Nausea, vomiting, abdominal pain 2/2 above -Depression -Obesity Plan: -LFTs continue to improve -NAC protocol to be completed today -Tolerating diet without issue -Ongoing supportive care -Psychiatric evaluation ongoing -No further work up from GI standpoint Discussed with Dr Daniel
--- NOTE | 2018-02-07 10:32 | CP.CCUPN ---
<Ashish Murphy - Last Filed: 02/07/18 11:53> CCU Subjective - Physician Review Subjective (Free Text): pt seen and examined at bedside this morning. No acute events overnight. Sitting up at bedside, in chair. no signs of distress. Pleasant mood. No vomiting or diarrhea overnight. Reports feeling well. Abdominal pain resolved. No complaints at this time. AAOX4. No SI/HI. CCU Objective - Vital Signs / Intake & Output Vital Signs (Last 4 hours): Vital Signs Temp Pulse Resp BP Pulse Ox 02/07/18 08:00 98.1 F 90 19 98/50 L 95 Intake and Output (Last 8hrs): Intake & Output 02/06/18 02/07/18 02/07/18 22:59 06:59 14:59 Intake Total 375 0 Output Total 400 Balance 375 0 -400 Weight 83.461 kg Intake: IV 375 0 Output: Urine 400 Urine, Voided 400 Other: # Voids Urine, Voided 1 - Physical Exam Head: Positive for: Atraumatic, Normocephalic Pupils: Positive for: PERRL Extroacular Muscles: Positive for: EOMI Conjunctiva: Positive for: Normal. Negative for: Injected, Icteric Mouth: Positive for: Moist Mucous Membranes Respiratory/Chest: Positive for: Clear to Auscultation, Good Air Exchange. Negative for: Respiratory Distress, Accessory Muscle Use, Wheezes, Decreased Breath Sounds, Rales, Rhonchi, Tachypneic Cardiovascular: Positive for: Regular Rate and Rhythm, Murmurs, Normal S1, S2, Peripheal Pulses Present. Negative for: Tachycardic, Bradycardic, Rub, Gallop Abdomen: Positive for: Normal Bowel Sounds. Negative for: Tenderness, Distention, Peritoneal Signs, Rebound, Guarding Upper Extremity: Positive for: Normal Inspection, Normal ROM, NORMAL PULSES, Neurovascularly Intact, Capillary Refill < 2s. Negative for: Cyanosis, Edema Lower Extremity: Positive for: Normal Inspection, NORMAL PULSES, Capillary Refill < 2 s. Negative for: Edema, CALF TENDERNESS, Tenderness, Swelling Neurological: Positive for: GCS=15, CN II-XII Intact, Speech Normal, Motor Func Grossly Intact, Normal Sensory Function, Normal Cerebellar Funct, Memory Normal Skin: Positive for: Warm, Dry, Normal Color. Negative for: Rashes Lymphatic: Negative for: Cervical Adenopathy Psychiatric: Positive for: Alert, Oriented x 3, Normal Insight, Normal Concentration, Normal Affect, Normal Mood. Negative for: Anxious, Agitated, Depressed Mood, Suicidal Ideation, Homicidal Ideation, Hallucinations - Medications Active Medications: Active Medications Generic Name Dose Route Start Last Admin Trade Name Freq PRN Reason Stop Dose Admin Acetylcysteine 8,360 mg/ 500 mls @ 32 mls/hr 02/07/18 08:58 Dextrose IVPB 02/08/18 00:35 STAT STA Ondansetron HCl 4 mg 02/05/18 21:58 02/05/18 22:02 Zofran Odt PO 4 mg Q8H PRN Administration Nausea/Vomiting - Patient Studies Lab Studies: Microbiology Studies 02/05/18 16:03 Urine Culture - Final Urine,Clean Catch No Growth (<1,000 CFU/ML) Lab Studies 02/07/18 02/07/18 02/07/18 Range/Units 04:35 04:35 04:35 WBC 7.5 (4.8-10.8) K/uL RBC 4.17 (3.80-5.20) Mil/uL Hgb 12.7 (12.0-16.0) g/dL Hct 37.2 (34.0-47.0) % MCV 89.1 (81.0-99.0) fl MCH 30.3 (27.0-31.0) pg MCHC 34.1 (33.0-37.0) g/dL RDW 13.2 (11.5-14.5) % Plt Count 230 (130-400) K/uL PT 14.9 H (9.8-13.1) Seconds INR 1.3 H (0.9-1.2) APTT (25.6-37.1) Seconds Sodium 139 (132-148) mmol/l Potassium 3.7 (3.6-5.0) MMOL/L Chloride 102 (98-107) mmol/L Carbon Dioxide 27 (22-30) mmol/L Anion Gap 14 (10-20) BUN 4 L (7-17) mg/dl Creatinine 0.5 L (0.7-1.2) mg/dl Est GFR ( Amer) > 60 Est GFR (Non-Af Amer) > 60 Random Glucose 101 (65-105) mg/dL Calcium 8.3 L (8.4-10.2) mg/dL Total Bilirubin 0.4 (0.2-1.3) mg/dl Direct Bilirubin (0.0-0.4) mg/ml AST 550 H D (14-36) U/L ALT 1420 H (9-52) U/L Alkaline Phosphatase 73 (38-126) U/L Total Protein 6.4 (6.3-8.2) G/DL Albumin 3.4 L (3.5-5.0) g/dL Globulin 3.0 (2.2-3.9) gm/dL Albumin/Globulin Ratio 1.1 (1.0-2.1) Serum Ketones (NEGATIVE) 02/06/18 02/06/18 02/06/18 Range/Units 12:55 12:55 04:20 WBC (4.8-10.8) K/uL RBC (3.80-5.20) Mil/uL Hgb (12.0-16.0) g/dL Hct (34.0-47.0) % MCV (81.0-99.0) fl MCH (27.0-31.0) pg MCHC (33.0-37.0) g/dL RDW (11.5-14.5) % Plt Count (130-400) K/uL PT 17.5 H (9.8-13.1) Seconds INR 1.6 H (0.9-1.2) APTT 33.1 (25.6-37.1) Seconds Sodium (132-148) mmol/l Potassium (3.6-5.0) MMOL/L Chloride (98-107) mmol/L Carbon Dioxide (22-30) mmol/L Anion Gap (10-20) BUN (7-17) mg/dl Creatinine (0.7-1.2) mg/dl Est GFR ( Amer) Est GFR (Non-Af Amer) Random Glucose (65-105) mg/dL Calcium (8.4-10.2) mg/dL Total Bilirubin 0.4 (0.2-1.3) mg/dl Direct Bilirubin 0.3 (0.0-0.4) mg/ml AST 1236 H (14-36) U/L ALT 1892 H (9-52) U/L Alkaline Phosphatase 58 (38-126) U/L Total Protein 6.3 (6.3-8.2) G/DL Albumin 3.4 L (3.5-5.0) g/dL Globulin 3.0 (2.2-3.9) gm/dL Albumin/Globulin Ratio 1.1 (1.0-2.1) Serum Ketones Negative (NEGATIVE) Laboratory Results - last 24 hr 02/06/18 02/06/18 02/06/18 04:20 12:55 12:55 WBC RBC Hgb Hct MCV MCH MCHC RDW Plt Count PT 17.5 H INR 1.6 H APTT 33.1 Sodium Potassium Chloride Carbon Dioxide Anion Gap BUN Creatinine Est GFR ( Amer) Est GFR (Non-Af Amer) Random Glucose Calcium Total Bilirubin 0.4 Direct Bilirubin 0.3 AST 1236 H ALT 1892 H Alkaline Phosphatase 58 Total Protein 6.3 Albumin 3.4 L Globulin 3.0 Albumin/Globulin Ratio 1.1 Serum Ketones Negative 02/07/18 02/07/18 02/07/18 04:35 04:35 04:35 WBC 7.5 RBC 4.17 Hgb 12.7 Hct 37.2 MCV 89.1 MCH 30.3 MCHC 34.1 RDW 13.2 Plt Count 230 PT 14.9 H INR 1.3 H APTT Sodium 139 Potassium 3.7 Chloride 102 Carbon Dioxide 27 Anion Gap 14 BUN 4 L Creatinine 0.5 L Est GFR ( Amer) > 60 Est GFR (Non-Af Amer) > 60 Random Glucose 101 Calcium 8.3 L Total Bilirubin 0.4 Direct Bilirubin AST 550 H D ALT 1420 H Alkaline Phosphatase 73 Total Protein 6.4 Albumin 3.4 L Globulin 3.0 Albumin/Globulin Ratio 1.1 Serum Ketones Fingerstick Blood Sugar Results: 92 Review of Systems - Constitutional Constitutional: absent: Fever, Chills, Sweats, Weakness, Malaise - EENT Eyes: UNREMARKABLE Ears: UNREMARKABLE Nose/Mouth/Throat: UNREMARKABLE - Breasts Breasts: UNREMARKABLE - Cardiovascular Cardiovascular: UNREMARKABLE - Respiratory Respiratory: UNREMARKABLE - Gastrointestinal Gastrointestinal: UNREMARKABLE - Genitourinary Genitourinary: UNREMARKABLE - Musculoskeletal Musculoskeletal: UNREMARKABLE - Integumentary Integumentary: UNREMARKABLE - Neurological Neurological: UNREMARKABLE Critical Care Progress Note - Ventilator Checklist Head of Bed 30 Degrees: Yes Daily Sedation Vacation: No Daily Assessment of Readiness to Wean: No Daily Spontaneous Breathing Trial: No DVT Prophylaxis: Yes - Nutrition Nutrition: Nutrition Category Date Time Status Regular Diet [DIET] Diets 02/06/18 Breakfast Active Assessment/Plan - Assessment and Plan (Free Text) Assessment: 22 y/o female admitted for APAP Overdose 2/2 to suicide attempt. Plan: 1) APAP Toxicity due to Intentional Overdose -improving -/2 to suicide attempt -no signs of SHIRA -Transaminases trending down, ALT/AST: 550/1420 -T Bili: 0.4 -INR: 1.3 today -seen by GI, no signs of SHIRA, recommends c/w poison control protocol and advance diet -supportive care -as Transaminases remain elevated, poison control recommnends c/w with NAC protocol -c/w monitoring transaminases, repeat liver studies pending -c/w monitoring coagulation studies, repeat labs pending 2) Suicidal Attempt -denies SI/HI today -evaluated by psych -c/w 1:1 monitoring -recommends screening for involuntary psychiatric admission when patient is medically stable 3) Reactive Leukocytosis -resolved 4) Ketosis -resolved 5) Diet -regular 6) DVT prophylaxis: -INR 1.3 -SCDs/ambulation 7) Code Status -Full Code <SimbaTc Yun - Last Filed: 02/08/18 15:39> CCU Subjective - Physician Review Subjective (Free Text): Attestation: Patient seen and examined at the bedside with Resident Dr. Caleb Murphy; and I agree with his outline of plans and management documented below as discussed on AM rounds reflecting my review of all applicable clinical data, and participation in the care of the patient throughout the day in ICU; today, February. CCU Objective - Patient Studies Lab Studies: Microbiology Studies 02/05/18 08:31 MRSA Culture (Admit) - Final Nose MRSA NOT DETECTED Lab Studies 02/08/18 02/08/18 02/08/18 Range/Units 04:30 04:30 04:30 WBC 9.2 (4.8-10.8) K/uL RBC 4.11 (3.80-5.20) Mil/uL Hgb 12.3 (12.0-16.0) g/dL Hct 36.7 (34.0-47.0) % MCV 89.4 (81.0-99.0) fl MCH 30.0 (27.0-31.0) pg MCHC 33.6 (33.0-37.0) g/dL RDW 13.1 (11.5-14.5) % Plt Count 235 (130-400) K/uL PT 14.1 H (9.8-13.1) Seconds INR 1.3 H (0.9-1.2) Sodium 141 (132-148) mmol/l Potassium 3.9 (3.6-5.0) MMOL/L Chloride 103 (98-107) mmol/L Carbon Dioxide 25 (22-30) mmol/L Anion Gap 17 (10-20) BUN 7 (7-17) mg/dl Creatinine 0.5 L (0.7-1.2) mg/dl Est GFR ( Amer) > 60 Est GFR (Non-Af Amer) > 60 Random Glucose 98 (65-105) mg/dL Calcium 8.7 (8.4-10.2) mg/dL Total Bilirubin 0.4 (0.2-1.3) mg/dl AST 156 H D (14-36) U/L ALT 938 H D (9-52) U/L Alkaline Phosphatase 68 (38-126) U/L Total Protein 6.9 (6.3-8.2) G/DL Albumin 3.6 (3.5-5.0) g/dL Globulin 3.2 (2.2-3.9) gm/dL Albumin/Globulin Ratio 1.1 (1.0-2.1) Laboratory Results - last 24 hr 02/08/18 02/08/18 02/08/18 04:30 04:30 04:30 WBC 9.2 RBC 4.11 Hgb 12.3 Hct 36.7 MCV 89.4 MCH 30.0 MCHC 33.6 RDW 13.1 Plt Count 235 PT 14.1 H INR 1.3 H Sodium 141 Potassium 3.9 Chloride 103 Carbon Dioxide 25 Anion Gap 17 BUN 7 Creatinine 0.5 L Est GFR ( Amer) > 60 Est GFR (Non-Af Amer) > 60 Random Glucose 98 Calcium 8.7 Total Bilirubin 0.4 AST 156 H D ALT 938 H D Alkaline Phosphatase 68 Total Protein 6.9 Albumin 3.6 Globulin 3.2 Albumin/Globulin Ratio 1.1 Critical Care Progress Note - Nutrition Nutrition: Nutrition Category Date Time Status Regular Diet [DIET] Diets 02/06/18 Breakfast Active
--- NOTE | 2018-02-07 12:29 | CP.PCM.PN ---
Subjective - Date & Time of Evaluation Date of Evaluation: 02/07/18 Time of Evaluation: 12:00 - Subjective Subjective: Pt has no abd pain Nausea dn Vomiting resolved no signs of bleeding LFTs still abn - will cont Acetylcysteine drip denies CP no SOB Objective - Vital Signs/Intake and Output Vital Signs (last 24 hours): Temp Pulse Resp BP Pulse Ox 98.7 F 85 14 123/67 100 02/07/18 12:00 02/07/18 12:00 02/07/18 12:00 02/07/18 12:00 02/07/18 12:00 Intake and Output: 02/07/18 02/07/18 06:59 18:59 Intake Total 125 Output Total 400 Balance 125 -400 - Medications Medications: Current Medications Acetylcysteine 8,360 mg/ (Dextrose) 500 mls @ 32 mls/hr IVPB STAT STA Stop: 02/08/18 00:35 Last Admin: 02/07/18 10:49 Dose: 32 mls/hr Ondansetron HCl (Zofran Odt) 4 mg PO Q8H PRN PRN Reason: Nausea/Vomiting Last Admin: 02/05/18 22:02 Dose: 4 mg - Labs Labs: 02/07/18 04:35 02/07/18 04:35 PT 14.9 Seconds (9.8-13.1) H 02/07/18 04:35 INR 1.3 (0.9-1.2) H 02/07/18 04:35 APTT 33.1 Seconds (25.6-37.1) 02/06/18 12:55 - Constitutional Appears: Non-toxic, No Acute Distress - Head Exam Head Exam: ATRAUMATIC, NORMAL INSPECTION, NORMOCEPHALIC - Eye Exam Eye Exam: EOMI, Normal appearance, PERRL Pupil Exam: NORMAL ACCOMODATION - ENT Exam ENT Exam: Mucous Membranes Moist, Normal External Ear Exam - Neck Exam Neck Exam: Full ROM. absent: Meningismus - Respiratory Exam Respiratory Exam: NORMAL BREATHING PATTERN. absent: Respiratory Distress - Cardiovascular Exam Cardiovascular Exam: REGULAR RHYTHM, +S1, +S2 - GI/Abdominal Exam GI & Abdominal Exam: Soft, Normal Bowel Sounds. absent: Tenderness - Extremities Exam Extremities Exam: Full ROM, Normal Capillary Refill. absent: Calf Tenderness, Pedal Edema - Back Exam Back Exam: Full ROM. absent: CVA tenderness (L), CVA tenderness (R) - Neurological Exam Neurological Exam: Alert, Awake, CN II-XII Intact, Oriented x3 - Psychiatric Exam Psychiatric exam: Normal Affect, Normal Mood - Skin Skin Exam: Dry, Normal Color, Warm Assessment and Plan - Assessment and Plan (Free Text) Assessment: 22 years old female with no significant past medical hx comes 3 days after ingesting a handful of Tylenol. She had some family dispute and wanted to commit suicide. She refers three days of nausea, vomiting associated with intermittent periumbilical abdominal pain. 1. Acetaminophen Overdose in a Suicide attempt - Pt is being monitored in ICU - Pt is hemodynamically stable , denies abd pain and N/V at present however LFTs still elevated - started on ACetylcysteine drip- will continue as LFTs still abn - Poison Control consulted - GI consulted- discussed case with Dr Daniel - Consult Psychiatry Dr Nunez- rec Inpatient Psych admission - cont 1:1 Suicide Observation 2. Acute Liver failure with Elevated Liver enzymes and Prolonged INR secondary to Acetaminophen overdose - Consult Dr Daniel GI - Acetylcysteine antidote dose started - ALT/AST :2.5K on admission - Follow LFT /INR/PTT - LFTs still abn but better - INR improving 3. Starvation Ketosis with elevated Ketones in urine - IV fluid with D5/NS and maintenance KCL 4. Reactive leukocytosis - resolved #. DVT Prophylaxis with SCD. No Anticoagulant as INR is already elevated
[2018-02-08 05:31] LABS: HEMOGLOBIN 12.3 g/dL (12.0-16.0); MEAN CELL VOLUME 89.4 fl (81.0-99.0); MEAN CORPUSCULAR HGB CONC 33.6 g/dL (33.0-37.0); RBC 4.11 Mil/uL (3.80-5.20); RED CELL DISTRIBUTION WIDTH 13.1 % (11.5-14.5); WHITE BLOOD COUNT 9.2 K/uL (4.8-10.8)
[2018-02-08 05:42] LABS: ALB/GLOB RATIO 1.1 (1.0-2.1); ALBUMIN 3.6 g/dL (3.5-5.0); ALT/SGPT 938 U/L (9-52); AST/SGOT 156 U/L (14-36); BLOOD UREA NITROGEN 7 mg/dl (7-17); CALCIUM 8.7 mg/dL (8.4-10.2); GFR AFRICAN-AMERICAN > 60; GFR NON-AFRICAN AMERICAN > 60
[2018-02-08 05:54] LABS: INR 1.3 (0.9-1.2); PROTHROMBIN TIME 14.1 Seconds (9.8-13.1)
--- NOTE | 2018-02-08 07:00 | CP.PCM.PN ---
Subjective - Date & Time of Evaluation Date of Evaluation: 02/08/18 Time of Evaluation: 06:58 - Subjective Subjective: PGY5 GI Fellow Progress Note Patient seen and examined bedside this morning. No issues overnight. No complaints at this time. Tolerating diet, ambulating without issue. 12 system ROS performed and negative except where stated. Objective - Vital Signs/Intake and Output Vital Signs (last 24 hours): Temp Pulse Resp BP Pulse Ox 98.1 F 60 15 102/70 99 02/08/18 04:00 02/08/18 06:00 02/08/18 06:00 02/08/18 04:00 02/08/18 06:00 Intake and Output: 02/07/18 02/08/18 18:59 06:59 Intake Total 424 844 Output Total 400 Balance 24 844 - Medications Medications: Current Medications Ondansetron HCl (Zofran Odt) 4 mg PO Q8H PRN PRN Reason: Nausea/Vomiting Last Admin: 02/05/18 22:02 Dose: 4 mg - Labs Labs: 02/08/18 04:30 02/08/18 04:30 PT 14.1 Seconds (9.8-13.1) H 02/08/18 04:30 INR 1.3 (0.9-1.2) H 02/08/18 04:30 APTT 33.1 Seconds (25.6-37.1) 02/06/18 12:55 Assessment and Plan - Assessment and Plan (Free Text) Assessment: Patient is a 22yo female with PMHx significant for obesity who presented to the ED with nausea, vomiting and decreased appetite -Intentional acetaminophen overdose -Suicide attempt with acetaminophen overdose -Nausea, vomiting, abdominal pain 2/2 above -Depression -Obesity Plan: -LFTs continue to improve; ALT typically lags in normalization behind other LFT markers -No evidence of acute liver failure during this admission (no evidence of HE at any point) -Tolerating diet without issue -Supportive care -Psychiatric consultation appreciated -No further work up from GI standpoint Discussed with Dr Daniel
[2018-02-08 08:16] VITALS: TEMP 99
--- NOTE | 2018-02-08 09:23 | CP.PCM.PCO ---
Physician Communication Note - Physician Communication Note Physician Communication Note: Agreeable for voluntary psychiatric admission; please transfer
--- NOTE | 2018-02-08 11:48 | CP.PCM.DIS ---
Provider - Provider Date of Admission: 02/05/18 20:05 Attending physician: Harvinder Mancera Consults: GI : Dr Daniel Time Spent in preparation of Discharge (in minutes): 20 Diagnosis - Discharge Diagnosis (1) Acetaminophen toxicity Status: Acute (2) Coagulopathy Status: Acute (3) Suicide attempt Status: Acute (4) Transaminitis Status: Acute Hospital Course - Lab Results Lab Results: Micro Results 02/05/18 08:31 Nose MRSA Culture (Admit) - Final MRSA NOT DETECTED 02/05/18 16:03 Urine,Clean Catch Urine Culture - Final No Growth (<1,000 CFU/ML) Most Recent Lab Values WBC 9.2 K/uL (4.8-10.8) 02/08/18 04:30 RBC 4.11 Mil/uL (3.80-5.20) 02/08/18 04:30 Hgb 12.3 g/dL (12.0-16.0) 02/08/18 04:30 Hct 36.7 % (34.0-47.0) 02/08/18 04:30 MCV 89.4 fl (81.0-99.0) 02/08/18 04:30 MCH 30.0 pg (27.0-31.0) 02/08/18 04:30 MCHC 33.6 g/dL (33.0-37.0) 02/08/18 04:30 RDW 13.1 % (11.5-14.5) 02/08/18 04:30 Plt Count 235 K/uL (130-400) 02/08/18 04:30 MPV 8.7 fl (7.2-11.7) 02/06/18 04:20 Neut % (Auto) 64.7 % (50.0-75.0) 02/06/18 04:20 Lymph % (Auto) 25.8 % (20.0-40.0) 02/06/18 04:20 [place] % (Auto) 8.7 % (0.0-10.0) 02/06/18 04:20 Eos % (Auto) 0.6 % (0.0-4.0) 02/06/18 04:20 Baso % (Auto) 0.2 % (0.0-2.0) 02/06/18 04:20 Neut # (Auto) 5.4 K/uL (1.8-7.0) 02/06/18 04:20 Lymph # (Auto) 2.1 K/uL (1.0-4.3) 02/06/18 04:20 [place] # (Auto) 0.7 K/uL (0.0-0.8) 02/06/18 04:20 Eos # (Auto) 0.1 K/uL (0.0-0.7) 02/06/18 04:20 Baso # (Auto) 0.0 K/uL (0.0-0.2) 02/06/18 04:20 Neutrophils % (Manual) 84 % (42-75) H 02/05/18 15:10 Lymphocytes % (Manual) 9 % (20-50) L 02/05/18 15:10 Monocytes % (Manual) 7 % (0-10) 02/05/18 15:10 Platelet Estimate Normal (NORMAL) 02/05/18 15:10 RBC Morphology Normal (NORMAL) 02/05/18 15:10 PT 14.1 Seconds (9.8-13.1) H 02/08/18 04:30 INR 1.3 (0.9-1.2) H 02/08/18 04:30 APTT 33.1 Seconds (25.6-37.1) 02/06/18 12:55 pCO2 38 mm/Hg (35-45) 02/05/18 23:09 pO2 155 mm/Hg (80-100) H 02/05/18 23:09 HCO3 25.2 mmol/L (21-28) 02/05/18 23:09 ABG pH 7.42 (7.35-7.45) 02/05/18 23:09 ABG Total CO2 25.8 mmol/L (22-28) 02/05/18 23:09 ABG O2 Saturation 100.3 % (95-98) H 02/05/18 23:09 ABG O2 Content 17.8 ML/dL (15-23) 02/05/18 23:09 ABG Base Excess 0.3 mmol/L (-2.0-3.0) 02/05/18 23:09 ABG Hemoglobin 12.8 g/dL (11.7-17.4) 02/05/18 23:09 ABG Carboxyhemoglobin 2.1 % (0.5-1.5) H 02/05/18 23:09 POC ABG HHb (Measured) -0.3 % (0.0-5.0) L 02/05/18 23:09 ABG Methemoglobin 1.0 % (0.0-3.0) 02/05/18 23:09 ABG O2 Capacity 17.7 mL/dL (16-24) 02/05/18 23:09 Jarred Test Yes 02/05/18 23:09 A-a O2 Difference 26.0 mm/Hg 02/05/18 23:09 Hgb O2 Saturation 97.2 % (95.0-98.0) 02/05/18 23:09 Vent Mode 3l nc 02/05/18 23:09 FiO2 32.0 % 02/05/18 23:09 Sodium 141 mmol/l (132-148) 02/08/18 04:30 Potassium 3.9 MMOL/L (3.6-5.0) 02/08/18 04:30 Chloride 103 mmol/L (98-107) 02/08/18 04:30 Carbon Dioxide 25 mmol/L (22-30) 02/08/18 04:30 Anion Gap 17 (10-20) 02/08/18 04:30 BUN 7 mg/dl (7-17) 02/08/18 04:30 Creatinine 0.5 mg/dl (0.7-1.2) L 02/08/18 04:30 Est GFR ( Amer) > 60 02/08/18 04:30 Est GFR (Non-Af Amer) > 60 02/08/18 04:30 POC Glucose (mg/dL) 92 mg/dL (65-110) 02/05/18 23:35 Random Glucose 98 mg/dL (65-105) 02/08/18 04:30 Lactic Acid 1.0 MMOL/L (0.7-2.1) 02/05/18 20:20 Calcium 8.7 mg/dL (8.4-10.2) 02/08/18 04:30 Total Bilirubin 0.4 mg/dl (0.2-1.3) 02/08/18 04:30 Direct Bilirubin 0.3 mg/ml (0.0-0.4) 02/06/18 12:55 AST 156 U/L (14-36) H D 02/08/18 04:30 ALT 938 U/L (9-52) H D 02/08/18 04:30 Alkaline Phosphatase 68 U/L (38-126) 02/08/18 04:30 Total Protein 6.9 G/DL (6.3-8.2) 02/08/18 04:30 Albumin 3.6 g/dL (3.5-5.0) 02/08/18 04:30 Globulin 3.2 gm/dL (2.2-3.9) 02/08/18 04:30 Albumin/Globulin Ratio 1.1 (1.0-2.1) 02/08/18 04:30 Lipase 99 U/L (23-300) 02/05/18 15:10 Urine Color Jeanne (YELLOW) 02/05/18 16:03 Urine Clarity Turbid (Clear) 02/05/18 16:03 Urine pH 5.0 (5.0-8.0) 02/05/18 16:03 Ur Specific [place] 1.029 (1.003-1.030) 02/05/18 16:03 Urine Protein >=500 mg/dL (NEGATIVE) 02/05/18 16:03 Urine Glucose (UA) Neg mg/dL (Normal) 02/05/18 16:03 Urine Ketones 80 mg/dL (NEGATIVE) 02/05/18 16:03 Urine Blood Small (NEGATIVE) 02/05/18 16:03 Urine Nitrate Negative (NEGATIVE) 02/05/18 16:03 Urine Bilirubin Negative (NEGATIVE) 02/05/18 16:03 Urine Urobilinogen 4.0 mg/dL (0.2-1.0) H 02/05/18 16:03 Ur Leukocyte Esterase Neg [place]/uL (Negative) 02/05/18 16:03 Urine RBC (Auto) 5 /hpf (0-3) H 02/05/18 16:03 Urine Microscopic WBC 18 /hpf (0-5) H 02/05/18 16:03 Ur Squamous Epith Cells 3 /hpf (0-5) 02/05/18 16:03 Urine Bacteria Many (<OCC) H 02/05/18 16:03 Hyaline Casts 0-2 /hpf (0-2) 02/05/18 16:03 Granular Casts (Auto) 0-2 /lpf (0-1) 02/05/18 16:03 Salicylates 10.4 mg/dl 02/05/18 20:25 Urine Opiates Screen Negative (NEGATIVE) 02/05/18 20:06 Urine Methadone Screen Negative (NEGATIVE) 02/05/18 20:06 Acetaminophen < 10.0 ug/ml (10.0-30.0) L 02/05/18 18:40 Ur Barbiturates Screen Negative (NEGATIVE) 02/05/18 20:06 Ur Phencyclidine Scrn Negative (NEGATIVE) 02/05/18 20:06 Ur Amphetamines Screen Negative (NEGATIVE) 02/05/18 20:06 U Benzodiazepines Scrn Negative (NEGATIVE) 02/05/18 20:06 U Oth Cocaine Metabols Negative (NEGATIVE) 02/05/18 20:06 U Cannabinoids Screen Negative (NEGATIVE) 02/05/18 20:06 Serum Ketones Negative (NEGATIVE) 02/06/18 04:20 Hepatitis A IgM Ab Negative (NEGATIVE) 02/05/18 18:40 Hep Bs Antigen Negative (NEGATIVE) 02/05/18 18:40 Hep B Core IgM Ab Negative (NEGATIVE) 02/05/18 18:40 Hepatitis C Antibody Negative (NEGATIVE) 02/05/18 18:40 - Hospital Course Hospital Course: 22 years old female with no significant past medical hx comes 3 days after ingesting a handful of Tylenol. She had some family dispute and wanted to commit suicide. She refers three days of nausea, vomiting associated with intermittent periumbilical abdominal pain. 1. Acetaminophen Overdose in a Suicide attempt - Pt is being monitored in ICU - Pt is hemodynamically stable , denies abd pain and N/V at present - started on ACetylcysteine drip - Poison Control consulted - GI consulted- discussed case with Dr Daniel - Consulted Psychiatry Dr Nunez- rec Inpatient Psych admission - was on 1:1 Suicide Observation 2. Acute Elevation in Liver enzymes and Prolonged INR secondary to Acetaminophen overdose ( no liver failure as patient has no hepatic encephalopathy ) - Consulted Dr Daniel GI - Received Acetylcysteine antidote - ALT/AST :2.5K on admission - INR elevated - LFTs and INR improved 3. Starvation Ketosis with elevated Ketones in urine - IV fluid with D5/NS and maintenance KCL 4. Reactive leukocytosis - resolved #. DVT Prophylaxis with SCD. No Anticoagulant as INR is already elevated Discharge Exam - Head Exam Head Exam: ATRAUMATIC, NORMAL INSPECTION, NORMOCEPHALIC - Eye Exam Eye Exam: EOMI, Normal appearance, PERRL Pupil Exam: NORMAL ACCOMODATION - ENT Exam ENT Exam: Mucous Membranes Moist, Normal External Ear Exam - Neck Exam Neck exam: Full Rom - Respiratory Exam Respiratory Exam: NORMAL BREATHING PATTERN. absent: Respiratory Distress - Cardiovascular Exam Cardiovascular Exam: REGULAR RHYTHM, +S1, +S2 - GI/Abdominal Exam GI & Abdominal Exam: Normal Bowel Sounds, Soft. absent: Tenderness - Extremities Exam Extremities exam: full ROM, normal capillary refill, pedal pulses present - Back Exam Back exam: FULL ROM. absent: CVA tenderness (L), CVA tenderness (R) - Neurological Exam Neurological exam: Alert, CN II-XII Intact, Normal Gait, Oriented x3, Reflexes Normal - Psychiatric Exam Psychiatric exam: Normal Affect, Normal Mood - Skin Skin Exam: Dry, Normal Color, Warm Discharge Plan - Follow Up Plan Condition: STABLE Disposition: DISCHARGE TO PSYCH HOSPITAL Additional Instructions: d/c pt to In-patient Psych Unit
[2018-02-08 12:13] VITALS: BP 112/62; PULSE 75; RESP 18; O2SAT 100
== END 2018-02-08 12:22 | DRG 582 ==
LOC: H.ER 13:39 → H.ERHOLD 20:05 → H.ICU/CCU 22:19
PROVIDERS: ADMIT Internal Medicine; ATTEND Internal Medicine
DX: T39.1X2A Poisoning by 4-Aminophenol derivatives, intentional self-harm, initial encounter (principal); K72.00 Acute and subacute hepatic failure without coma; F32.9 Major depressive disorder, single episode, unspecified; D68.9 Coagulation defect, unspecified; E66.9 Obesity, unspecified; Z68.39 Body mass index [BMI] 39.0-39.9, adult; D72.828 Other elevated white blood cell count; E88.89 Other specified metabolic disorders; F17.210 Nicotine dependence, cigarettes, uncomplicated; Z91.5 Personal history of self-harm; Y92.89 Other specified places as the place of occurrence of the external cause

== ENCOUNTER 2018-02-08 12:33 | Inpatient (IN) | payer MEDICAID ==
[2018-02-08] MEDS ORDERED: Magnesium Hydroxide Susp 30 ml UD PO PRN (13:35)
[2018-02-08] MEDS ORDERED: DiphenhydrAMINE 50 mg/ml Inj IM PRN (13:35)
[2018-02-08] MEDS ORDERED: Alum-Mag Hydrox-Simethicone Susp (30 mL) PO PRN (13:35)
--- NOTE | 2018-02-08 15:41 | PCM.BM ---
<Tamar Forrester - Last Filed: 02/08/18 15:42> Treatment assets and liabiliti Patient Assests: cooperative, insightful, motivated, self-reliant, ADL independent, physically healthy, negotiates basic needs, cognitively intact Patient Liabilities: relationship conflicts, other - Milieu Protocol Maintain good personal hygiene: daily Encourage regular showers, daily Remind patient to perform daily oral care, daily Assist patient to perform ADL's Conduct patient checks and document Observation sheet: Q15 minutes Maintain personal safety: every shift Educate patient to report safety concerns to staff, every shift Monitor environment for contraband/sharps Medication safety: Monitor for expected outcome, potential side effects: daily, Assess barriers to learning: daily, Assess readiness for medication education: daily Milieu Narrative: lexapro 5mg uptitrate gradually CBT group and supportive therapy Discharge/Continuing Care - Treatment Team Participation Patient/Family/SO Statement: lexapro 5mg uptitrate gradually CBT group and supportive therapy <Panda Quiroz - Last Filed: 02/09/18 16:27> Family Contact Family involvement: Family/SO is involved Family contact: Patient declines to allow family contact at present Family contact name: Pt refused. - Goals for Treatment Patient goals for treatment: Pt could not speak of any goals, except to leave the hospital. Discharge/Continuing Care - Education Needs Education Needs: Patient Medication, Patient Diagnosis/Disease Process, Patient Coping Skills, Patient Aftercare Safety Plan - Discharge Discharge Criteria: Tolerates medication w/o severe side effects, Free of Suicidal thoughts, Reduction of target symptoms Discharge to:: Home, With Family - Treatment Team Participation Discussed with Family/SO: No Was Patient/Family/SO present at Treatment Team Meeting: Yes <Bill Nunez - Last Filed: 02/12/18 12:24> - Diagnosis (1) Depression Status: Acute Interventions: psychotherapy, pharmacotherapy 02/12/18 12:24
[2018-02-09 07:08] LABS: ALB/GLOB RATIO 1.2 (1.0-2.1); ALBUMIN 3.8 g/dL (3.5-5.0); BILIRUBIN,DIRECT 0.2 mg/ml (0.0-0.4); INR 1.1 (0.9-1.2); PROTHROMBIN TIME 12.5 Seconds (9.8-13.1)
[2018-02-09 07:20] LABS: T4 9.19 ug/dl (5.5-11.0)
--- NOTE | 2018-02-09 10:39 | CP.PCM.CON ---
History of Present Illness - History of Present Illness History of Present Illness: CC: Tyenol overdose This is a 22 year old female with no significant past medical history who presented initially to the ED on 02/05/18 3 days after ingesting Acetaminophen after a suicidal attempt. The patient had a family dispute at that time instigating this. The patient was admitted to the ICU, started on acetylcysteine drip, and poison control was consulted. Dr. Daniel was also consulted at that time. During her hospital course, the patient was found to have ALT/AST 2.5k initially on admission, all of which trended down during her stay. The patient is now being admitted to inpatient psychiatric del cid after being stabilized as an inpatient. Today, her transaminases and INR have continued to trend down. She denies any current problems and feels well. Patient denies chest pain, shortness of breath, fevers, chills, nausea, vomiting , diarrhea, headache. All of the patient's questions were answered. PMH: No Chronic Diseases PSH; Cesarian Section SH: Light smoker; occasional Alcohol; No illegal drug use; Live with family; she is an at home mother FH: Mother and Sister with Asthma Allergies: NKDA Medication: Denies Review of Systems - Review of Systems Review of Systems: A 12 point review of systems was conducted and found to be negative other than what was mentioned in the HPI. Past Patient History - Infectious Disease Hx of Infectious Diseases: None - Past Medical History & Family History Past Medical History?: No Past Family History: Reviewed and not pertinent - Past Social History Smoking Status: Former Smoker Chewing Tobacco Use: No - CARDIAC Hx Cardiac Disorders: No - PULMONARY Hx Respiratory Disorders: No - NEUROLOGICAL Hx Neurological Disorder: No - HEENT Hx HEENT Problems: No - RENAL Hx Chronic Kidney Disease: No - ENDOCRINE/METABOLIC Hx Endocrine Disorders: No - HEMATOLOGICAL/ONCOLOGICAL Hx Blood Disorders: No - INTEGUMENTARY Hx Dermatological Problems: No - MUSCULOSKELETAL/RHEUMATOLOGICAL Hx Musculoskeletal Disorders: No - GASTROINTESTINAL Hx Gastrointestinal Disorders: No - GENITOURINARY/GYNECOLOGICAL Hx Genitourinary Disorders: No - PSYCHIATRIC Hx Depression: No Hx Substance Use: No - SURGICAL HISTORY Hx Section: Yes - ANESTHESIA Hx Anesthesia: Yes Hx Anesthesia Reactions: No Meds Allergies/Adverse Reactions: Allergies Allergy/AdvReac Type Severity Reaction Status Date / Time No Known Allergies Allergy Verified 10/19/14 03:09 - Medications Medications: Current Medications Acetaminophen (Tylenol 325mg Tab) 650 mg PO Q4 PRN PRN Reason: Pain, moderate (4-7) Al Hydrox/Mg Hydrox/Simethicone (Maalox Plus 30 Ml) 30 ml PO Q4 PRN PRN Reason: Dyspepsia Diphenhydramine HCl (Benadryl) 50 mg IM Q6 PRN PRN Reason: Extrapyramidal S/S Unable PO Diphenhydramine HCl (Benadryl) 50 mg PO Q6 PRN PRN Reason: Extrapyramidal Symptoms Escitalopram Oxalate (Lexapro) 10 mg PO DAILY BHARGAV Haloperidol (Haldol) 5 mg PO Q4 PRN PRN Reason: Agitation Haloperidol Lactate (Haldol) 5 mg IM Q4 PRN PRN Reason: Agitation, Unable to Take PO Lorazepam (Ativan) 2 mg IM Q4 PRN PRN Reason: Anxiety/Agitation,Unable PO Lorazepam (Ativan) 2 mg PO Q4 PRN PRN Reason: Anxiety/Agitation Magnesium Hydroxide (Milk Of Magnesia) 30 ml PO HS PRN PRN Reason: Constipation Trazodone HCl (Desyrel) 50 mg PO HS PRN PRN Reason: Insomnia Physical Exam - Additional Findings Additional findings: Physical exam: Constitutional- cooperative, awake, alert Head- NCAT, PERRL Eye- PERRL, EOMI ENT- normal exam, MMM. Neck- normal inspection, supple, no JVD Respiratory- CTAB, no wheezes rales rhonchi Cardiovascular- RRR, +S1, +S2 no MRG GI/Abdominal- normal bowel sounds, soft, no mass, no hsm Skin- warm, dry Extremities Exam- normal capillary refill, normal inspection Neurological Exam- alert, awake, oriented Psych- normal mood, normal affect Results - Vital Signs Recent Vital Signs: Last Vital Signs Temp 96.6 F L 02/09/18 09:00 Pulse 83 02/09/18 09:00 Resp 18 02/09/18 09:00 BP 158/74 H 02/09/18 09:00 Pulse Ox - Labs Labs: Laboratory Results - last 24 hr 02/09/18 02/09/18 06:00 06:00 PT 12.5 INR 1.1 Total Bilirubin 0.5 Direct Bilirubin 0.2 AST 91 H D ALT 686 H D Alkaline Phosphatase 70 Total Protein 7.0 Albumin 3.8 Globulin 3.2 Albumin/Globulin Ratio 1.2 Triglycerides 108 Cholesterol 130 LDL Cholesterol Direct 73 HDL Cholesterol 37 Thyroxine (T4) 9.19 TSH 3rd Generation 1.06 Assessment & Plan - Assessment and Plan (Free Text) Plan: 22 yo female admitted to psych unit s/p Acetaminophen overdose, suicidal attempt. 1. Acetaminophen Overdose in a Suicide attempt - Stabilized as inpatient and now admitted to psychiatric del cid - Pt is hemodynamically stable , denies abd pain and N/V at present - was started on ACetylcysteine drip and poison control was consulted during her stay - Psychiatric management as per primary 2. Acute Elevation in Liver enzymes and Prolonged INR secondary to Acetaminophen overdose ( no liver failure as patient has no hepatic encephalopathy ) - Consulted Dr Fredy VILLALTA - Received Acetylcysteine antidote - ALT/AST :2.5K on admission - ALT 686, AST 91, much improved. Would repeat in 2-3 days to ensure normalization of transaminases - INR normalized at 1.1 3. Reactive leukocytosis - resolved
--- NOTE | 2018-02-09 15:27 | PCM.PYCHPN ---
Psychiatric Progress Note - Psychiatric Progress Note Patient seen today, length of contact: pt evaluated discussed with team chart reviewed Patient Chief Complaint: I am worried about my children Problems Identified/Issues Discussed: pt evaluated with treatment team, requesting discharge, continues to have limited insight into the reason of hospitalization, continues to have depressed mood and tearful affect , discussed with pt that [facility] will be contacted by social science research assistant for providing her and children with more help pt agreed increasing dose of lexapro to 10mg, also the need for therapy on discharge denied any current suicidal or homicidal ideation, denied perceptual disturbance Medical Problems: no hx of previous psychiatric treatment DSM 5 Symptoms Update: major depression Medication Change: Yes (increase lexapro) Medical Record Reviewed: Yes Mental Status Examination - Cognitive Function Orientation: Person, Place Memory: Intact Attention: WNL Concentration: WNL Association: WNL Fund of Knowledge: WNL Decription of patient's judgement and insights: fair insight poor impulse control - Mood Mood: Depressed, Anxious - Affect Affect: Depressed - Speech Speech: Soft - Formal Thought Process Formal Thought Process: Circumstantial - Suicidal Ideation Suicidal Ideation: No - Homicidal Ideation Homicidal Ideation: No Goal/Treatment Plan - Goal/Treatment Plan Need for Continued Stay: Severe depression anxiety, Discharge may exacerbated symptoms Progress Toward Problem(s) and Goals/Treatment Plan: lincrease exapro 10mg uptitrate gradually CBT group and supportive therapy
--- NOTE | 2018-02-10 10:08 | PCM.PYCHPN ---
Psychiatric Progress Note - Psychiatric Progress Note Patient seen today, length of contact: Patient evaluated, case discussed with team, chart reviewed Patient Chief Complaint: "I'm okay." Problems Identified/Issues Discussed: Patient reports that her mood is improving. She denies active suicidal ideation /plan/intent. She wants to continue living for her children and is upset that [facility] will be involved. She denies adverse effects to Lexapro. Medication Change: No Medical Record Reviewed: Yes Consults ordered or reviewed: Medicine consult Mental Status Examination - Cognitive Function Orientation: Person, Place, Situation, Time Memory: Intact Attention: WNL Concentration: WNL Association: [facility] Fund of Knowledge: [facility] Decription of patient's judgement and insights: Improving I/J - Mood Mood: Depressed - Affect Affect: Broad - Speech Speech: Soft - Formal Thought Process Formal Thought Process: No Impairment Psychotic Thoughts and Behaviors: NO AH/VH/paranoia/delusions - Suicidal Ideation Suicidal Ideation: No - Homicidal Ideation Homicidal Ideation: No Goal/Treatment Plan - Goal/Treatment Plan Need for Continued Stay: Severe depression anxiety, Discharge may exacerbated symptoms Progress Toward Problem(s) and Goals/Treatment Plan: Major Depressive Disorder; Borderline Personality Disorder -Continue Lexapro 10 mg PO Daily -Individual and group therapy -Psychoeducation -Medicine consult -Disposition planning Estimated Date of D/C: 02/12/18
--- NOTE | 2018-02-11 10:31 | PCM.PYCHPN ---
Psychiatric Progress Note - Psychiatric Progress Note Patient seen today, length of contact: Patient evaluated, case discussed with team, chart reviewed Patient Chief Complaint: "I'm okay." Problems Identified/Issues Discussed: Patient reports that her mood continues to improve. She denies acute depression /anxiety. She denies active suicidal ideation/plan/intent. She denies adverse effects to Lexapro. She is goal oriented towards discharge. Medication Change: No Medical Record Reviewed: Yes Consults ordered or reviewed: Medicine consult Mental Status Examination - Cognitive Function Orientation: Person, Place, Situation, Time Memory: Intact Attention: WNL Concentration: WNL Association: WNL Fund of Knowledge: [facility] Decription of patient's judgement and insights: Improving I/J - Mood Mood: Neutral - Affect Affect: Broad - Speech Speech: Appropriate - Formal Thought Process Formal Thought Process: No Impairment Psychotic Thoughts and Behaviors: NO AH/VH/paranoia/delusions - Suicidal Ideation Suicidal Ideation: No - Homicidal Ideation Homicidal Ideation: No Goal/Treatment Plan - Goal/Treatment Plan Need for Continued Stay: Discharge may exacerbated symptoms Progress Toward Problem(s) and Goals/Treatment Plan: Major Depressive Disorder; Borderline Personality Disorder -Continue Lexapro 10 mg PO Daily -Individual and group therapy -Psychoeducation -Medicine consult -Disposition planning Estimated Date of D/C: 02/12/18
[2018-02-12 09:05] VITALS: BP 102/70; PULSE 76; RESP 18; TEMP 98.1
--- NOTE | 2018-02-12 16:12 | PCM.PYCHDC ---
Mental Status Examination - Mental Status Examination Orientation: Person, Place, Situation Memory: Intact Mood: Neutral Affect: Broad Speech: Appropriate Attention: WNL Concentration: WNL Association: WNL Fund of Knowledge: WNL Formal Thought Process: No Impairment Description of patient's judgement and insight: fair insight poor impulse control Psychotic Thoughts and Behaviors: pt denied any psychotic symptoms, non elicited Suicidal Ideation: No Current Homicidal Ideation?: No Discharge Summary - Discharge Note Reason for Hospitalization: 22 yo female w/ no significant past medical or psychiatric history admitted to ICU after suicide attempt by taking about 0 tablets of Tylenol on last Monday after conflict with father of her two children after she e found out that he was cheating on her. She reports that she made the attempt while she was at home and her children were also present in the home under the care of her sister. pt reported at thet time she felt hopeless and helpless and wanted to sleep through the pain pt tearfull and depressed, anxious about her children denied active suicidal intent on the unit , denied homicidal ideations denied perceptual disturbances Consultations:: List each consultation separately and include: 1. Reason for request. 2. Findings. 3. Follow-up Summary of Hospital Course include:: 1. Description of specific treatment plan utilized for patients during their course of treatmen. 2. Summarize the time- course for resolution of acute symptoms and/or regressed behaviors. 3. Describe issues identified and worked on during hospitalization. 4. Describe medication utilized. 5. Describe medical problems identified and treated. 6. Reassessment of suicide risk Summary of Hospital Course: pt on admission was started on lexapro , it was up titrated to 10mg,CBT group and supportive therapy provided division of child protective services was contacted and meeting was held with patient for discussion of provision of more social service coordinator pt gradually presented with brighter affect, on discharge mental status was stable, patient denied any suicidal or homicidal ideations, no reported side effects of medications - Diagnosis (1) Depression Status: Acute - Final Diagnosis (DSM 5) Condition upon Discharge: GOOD DSM 5: adjustment disorder with depressed mood borderline personality traits Disposition: HOME/ ROUTINE Follow-up Treatment Plan: lincrease exapro 10mg uptitrate gradually CBT group and supportive therapy Prescriptions/Medication Reconciliation: Escitalopram [Lexapro] 10 mg PO DAILY 30 Days #30 tab - Smoking Cessation Smoking Cessation Medication prescribed: No - Antipsychotic Medications Pt discharged on 2 or more routine antipsychotic medications: No
== END 2018-02-12 14:42 | disposition home or self-care (01) | DRG 426 ==
LOC: H.PSYCH 12:52
PROVIDERS: ADMIT Psychiatry & Neurology Psychiatry; ATTEND Psychiatry & Neurology Psychiatry
PROC: GZHZZZZ Group Psychotherapy (ICD-10-PCS; principal; 2018-02-08)
PROC: GZ58ZZZ Individual Psychotherapy, Cognitive-Behavioral (ICD-10-PCS; 2018-02-08)
DX: F43.21 Adjustment disorder with depressed mood (principal); F60.3 Borderline personality disorder; D72.828 Other elevated white blood cell count; Z91.5 Personal history of self-harm; F17.210 Nicotine dependence, cigarettes, uncomplicated; Z79.899 Other long term (current) drug therapy

== ENCOUNTER 2018-10-26 23:30 | Emergency (ER) | payer MEDICAID ==
[2018-10-26 23:31] VITALS: BMI 39.8
[2018-10-26 23:45] VITALS: BP 101/73; PULSE 94; RESP 18; TEMP 98.3; O2SAT 98
--- NOTE | 2018-10-27 01:09 | ED PDOC ---
HPI: Influenza Time Seen by Provider: 10/27/18 00:49 Chief Complaint: Cough, Cold, Congestion History Per: Patient Additional complaint(s):: Cough, congestion, fever, bodyaches, chills that began yesterday. Took Motrin prior to arrival and symptoms began to improve while in ED. Denies chest pain, SOB, hemoptysis, N/V/D, rash, recent travel. Of note, pt. did not get her influenza vaccine this season. Past Medical History Reviewed: Historical Data, Nursing Documentation, Vital Signs Vital Signs: Last Vital Signs Temp 98.3 F 10/26/18 23:42 Pulse 94 H 10/26/18 23:42 Resp 18 10/26/18 23:42 BP 101/73 10/26/18 23:42 Pulse Ox 98 10/26/18 23:42 - Medical History PMH: Denies: Depression, HIV, Chronic Kidney Disease - Surgical History Surgical History: No Surg Hx - Family History Family History: States: No Known Family Hx - Home Medications Home Medications: Ambulatory Orders Medication Instructions Recorded RX: Escitalopram [Lexapro] 10 mg PO DAILY 30 Days #30 tab 02/12/18 Oseltamivir Cap [Tamiflu] 75 mg PO BID #9 cap 10/27/18 - Allergies Allergies/Adverse Reactions: Allergies Allergy/AdvReac Type Severity Reaction Status Date / Time No Known Allergies Allergy Verified 07/27/14 03:09 Review of Systems ROS Statement: Except As Marked, All Systems Reviewed And Found Negative Constitutional: Positive for: Fever ENT: Positive for: Nose Congestion Respiratory: Positive for: Cough Physical Exam - Physical Exam Appears: Positive for: Well, Non-toxic, No Acute Distress Skin: Positive for: Normal Color, Warm. Negative for: Rash Eye Exam: Positive for: Normal appearance. Negative for: Conjunctival injection ENT: Positive for: Normal ENT Inspection. Negative for: Pharyngeal Erythema, Tonsillar Exudate, Tonsillar Swelling Neck: Positive for: Normal, Painless ROM Cardiovascular/Chest: Positive for: Regular Rate, Rhythm Respiratory: Positive for: Normal Breath Sounds. Negative for: Respiratory Distress Gastrointestinal/Abdominal: Positive for: Normal Exam, Soft. Negative for: Tenderness Neurologic/Psych: Positive for: Alert, Oriented (x3) - ECG O2 Sat by Pulse Oximetry: 98 - Progress ED Course And Treament: Tamiflu PO ordered. Disposition - Clinical Impression Clinical Impression: Influenza-like illness - Patient ED Disposition Is Patient to be Admitted: No - Disposition Referrals: [facility] [place] [Outside] Disposition: Routine/Home Disposition Time: 01:08 Condition: STABLE Additional Instructions: FOLLOW UP WITH YOUR DOCTOR FOR FURTHER EVALUATION RETURN TO ED IMMEDIATELY IF SYMPTOMS WORSEN INNAKEVIN TRUJILLOUEL, thank you for letting us take care of you today. Your provider jose elias Magana MD and you were treated for SOB/FEVER/THROAT PAIN. The emergency medical care you received today was directed at your acute symptoms. If you were prescribed any medication, please fill it and take as directed. It may take several days for your symptoms to resolve. Return to the Emergency Department if your symptoms worsen, do not improve, or if you have any other problems. Please contact your doctor or call one of the physicians/clinics you have been referred to that are listed on the Patient Visit Information form that is included in your discharge packet. Bring any paperwork you were given at discharge with you along with any medications you are taking to your follow up visit. Our treatment cannot replace ongoing medical care by a primary care provider outside of the emergency department. Thank you for allowing the [facility] team to be part of your care today. If you had an X-Ray or CT scan: A Radiologist will review the ED reading if any change in treatment is needed we will contact you. If you had a blood, urine, or wound culture: It will take several days for the results, if any change in treatment is needed we will contact you. If you had an STI test: It will take 48 hours for the results. Please call after 1 week if you have not heard back. Prescriptions: Oseltamivir Cap [Tamiflu] 75 mg PO BID #9 cap Instructions: Flu, Adult (DC) Forms: [employer] (Greenlandic)
== END 2018-10-27 01:46 | disposition home or self-care (01) ==
LOC: H.ER 23:30
DX: J11.1 Influenza due to unidentified influenza virus with other respiratory manifestations (principal)